=== PATIENT | male | born 1950 | race Caucasian/White ===

== ENCOUNTER 2024-09-27 19:00 | Inpatient (IN) | payer MEDICARE, BC ==
--- NOTE | 2024-09-27 19:11 | ED ---
Altered Mental Status HPI - General Stated Complaint: AMS Time Seen by Provider: 09/27/24 19:07 Source: RN notes reviewed, old records reviewed Mode of arrival: EMS Limitations: altered mental status, physical limitation - History of Present Illness Initial Comments: This is a 74-year-old male to the ER today. He presents today for evaluation regards to altered mental status. Patient is poor historian unable to give us answers as to why he is here in the hospital., Patient remains a poor historian here in the ER found to have low blood sugar MD Complaint: altered mental status, confusion -: unknown Severity: moderate Consistency of Symptoms: getting worse Context: history of similar presentation Associated Symptoms: shortness of breath, weakness Treatments Prior to Arrival: oxygen - Related Data Home Medications Medication Instructions Recorded Confirmed Cyclobenzaprine [Flexeril] 10 mg PO TID 09/27/24 09/27/24 DULoxetine HCL [Cymbalta] 60 mg PO DAILY PRN 09/27/24 09/27/24 Losartan [Cozaar] 50 mg PO DAILY 09/27/24 09/29/24 Montelukast [Singulair] 10 mg PO DAILY 09/27/24 09/27/24 NIFEdipine XL [Procardia XL] 60 mg PO DAILY 09/27/24 09/29/24 Omeprazole [PriLOSEC] 10 mg PO DAILY 09/27/24 09/29/24 Pioglitazone [Actos] 30 mg PO DAILY 09/27/24 09/29/24 Trelegy (Unknown Dose) 1 puff INHALATION RT-DAILY 09/27/24 09/27/24 Zolpidem [Ambien] 10 mg PO HS 09/27/24 09/27/24 allopurinoL [Zyloprim] 300 mg PO DAILY 09/27/24 09/29/24 carvediloL [Coreg] 25 mg PO BID 09/27/24 09/29/24 metFORMIN HCL [Glucophage] 850 mg PO DAILY 09/27/24 09/29/24 Previous Rx's Medication Instructions Recorded Acetaminophen Tab [Tylenol] 650 mg PO Q6HR PRN tab 10/01/24 Apixaban [Eliquis] 5 mg PO BID #60 tab 10/01/24 Aspirin 81 mg PO DAILY 7 Days #7 tab 10/01/24 Atorvastatin [Lipitor] 40 mg PO HS #30 tab 10/01/24 Clopidogrel [Plavix] 75 mg PO DAILY #30 tab 10/01/24 Furosemide [Lasix] 40 mg PO DAILY #30 tab 10/01/24 Gabapentin [Neurontin] 300 mg PO TID cap 10/01/24 Mag Hydrox/Al Hydrox/Simeth 30 ml PO Q4HR PRN ml 10/01/24 [Maalox] Nitroglycerin Sl Tabs [Nitrostat] 0.4 mg SUBLINGUAL Q5M PRN #20 tab 10/01/24 Pantoprazole [Protonix] 40 mg PO AC-BRKFST #30 tab 10/01/24 glipiZIDE [Glucotrol] 5 mg PO BID 30 Days #30 tab 10/01/24 Allergies Allergy/AdvReac Type Severity Reaction Status Date / Time Penicillins Allergy Thrush Verified 09/27/24 20:38 Review of Systems ROS Statement: Those systems with pertinent positive or pertinent negative responses have been documented in the HPI. ROS Other: All systems not noted in ROS Statement are negative. General Exam Limitations: altered mental status General appearance: alert, in no apparent distress, anxious, lethargic Head exam: Present: atraumatic, normocephalic, normal inspection Eye exam: Present: normal appearance, PERRL, EOMI. Absent: scleral icterus, conjunctival injection, periorbital swelling ENT exam: Present: normal exam, mucous membranes moist Neck exam: Present: normal inspection. Absent: tenderness, meningismus, lymphadenopathy Respiratory exam: Present: normal lung sounds bilaterally. Absent: respiratory distress, wheezes, rales, rhonchi, stridor Cardiovascular Exam: Present: normal rhythm, bradycardia, normal heart sounds. Absent: systolic murmur, diastolic murmur, rubs, gallop, clicks GI/Abdominal exam: Present: soft, normal bowel sounds. Absent: distended, tende rness, guarding, rebound, rigid Extremities exam: Present: normal inspection, full ROM, normal capillary refill. Absent: tenderness, pedal edema, joint swelling, calf tenderness Back exam: Present: normal inspection Neurological exam: Present: alert, oriented X3, CN II-XII intact Psychiatric exam: Present: normal affect, normal mood Skin exam: Present: warm, dry, intact, normal color. Absent: rash Course Vital Signs 09/27/24 09/27/24 09/27/24 19:00 20:46 22:27 Temperature 98.1 F 98.3 F Pulse Rate 54 L 58 L 60 Respiratory 18 18 19 Rate Blood Pressure 110/70 125/71 136/79 O2 Sat by Pulse 97 97 97 Oximetry - Reevaluation(s) Reevaluation #1: 09/27/24 19:27 Medical records reviewed Reevaluation #2: 09/27/24 21:22 Patient has recurrent hypoglycemia here in the ER with altered mental status Reevaluation #3: 09/27/24 21:22 Patient informed of results and questions answered Reevaluation #4: Was pt. sent in by a medical professional or institution (, BOO, DIETITIAN RESEARCH, urgent care, hospital, or fpc...) When possible be specific @ -no Did you speak to anyone other than the patient for history (EMS, parent, family, police, friend...)? What history was obtained from this source @ -no Did you review nursing and triage notes (agree or disagree)? Why? @ -agree Are old charts reviewed (outside hosp., previous admission, EMS record, old EKG, old radiological studies, urgent care reports/EKG's, fpc records)? Report findings @ -yes Differential Diagnosis (chest pain, altered mental status, abdominal pain women, abdominal pain men, vaginal bleeding, weakness, fever, dyspnea, syncope, headache, dizziness, GI bleed, back pain, seizure, CVA, palpatations, mental health, musculoskeletal)? @ -prior EKG interpreted by me (3pts min.). @ -yes X-rays interpreted by me (1pt min.). @ -yes negative for acute disease CT interpreted by me (1pt min.). @ -no U/S interpreted by me (1pt. min.). @ -no What testing was considered but not performed or refused? (CT, X-rays, U/S, labs)? Why? @ -none What meds were considered but not given or refused? Why? @ -none Did you discuss the management of the patient with other professionals (professionals i.e. [facility], DIETITIAN RESEARCH, lab, RT, psych nurse, licensed social worker, gas leak inspector helper, teacher, financial administration officer, family independence case manager)? Give summary @ -no Was smoking cessation discussed for >3mins.? @ -no Was critical care preformed (if so, how long)? @ -no Were there social determinants of health that impacted care today? How? (Homelessness, low income, unemployed, alcoholism, drug addiction, transportation, low edu. Level, literacy, decrease access to med. care, assisted, rehab)? @ -none Was there de-escalation of care discussed even if they declined (Discuss DNR or withdrawal of care, Hospice)? DNR status @ -no What co-morbidities impacted this encounter? (DM, HTN, Smoking, COPD, CAD, Cancer, CVA, ARF, Chemo, Hep., AIDS, mental health diagnosis, sleep apnea, morbid obesity)? @ -none Was patient admitted / discharged? Hospital course, mention meds given and route, prescriptions, significant lab abnormalities, going to OR and other pertinent info. @ - 74 male to the ER for evaluation patient presents with weakness unable to get up off the ground after a fall. Patient states he is fallen multiple times lately and he was unable to get up this time called EMS found to have recurrent hypoglycemia here in the ER and will admit for monitoring Admitted Undiagnosed new problem with uncertain prognosis? @ -no Drug Therapy requiring intensive monitoring for toxicity (Heparin, Nitro, Insulin, Cardizem)? @ -no Were any procedures done? @ -no Diagnosis/symptom? @ -Recurrent hypoglycemia multiple falls and weakness Acute, or Chronic, or Acute on Chronic? @ -Acute Uncomplicated (without systemic symptoms) or Complicated (systemic symptoms)? @ -Complicated Side effects of treatment? @ -no Exacerbation, Progression, or Severe Exacerbation? @ -exacerbation Poses a threat to life or bodily function? How? (Chest pain, USA, PA, pneumonia, PE, COPD, DKA, ARF, appy, cholecystitis, CVA, Diverticulitis, Homicidal, Suicidal, threat to staff... and all critical care pts) @ -yes extremes of age Reevaluation #5: Differential Altered Mental Status: Hypoglycemia, DKA, hypercapnia, ETOH, overdose, CO poisoning, trauma, myxedema coma, HTN encephalopathy, infection, encephalitis, psychosis, intercranial hemorrhage, hepatic encephalopathy, meningitis, CVA, this is not meant to be an all-inclusive list - Consultations Consultation #1: Spoke with [facility] who agrees to admit this patient Medical Decision Making - Medical Decision Making 74 male to the ER for evaluation patient presents with weakness unable to get up off the ground after a fall. Patient states he is fallen multiple times lately and he was unable to get up this time called EMS found to have recurrent hypoglycemia here in the ER and will admit for monitoring - Lab Data Result diagrams: 10/01/24 06:00 10/01/24 06:00 Lab Results 09/27/24 09/27/24 09/27/24 Range/Units 19:43 19:43 19:43 WBC 4.4 (3.8-10.6) k/uL RBC 3.99 L (4.30-5.90) m/uL Hgb 13.2 (13.0-17.5) gm/dL Hct 41.8 (39.0-53.0) % MCV 104.6 H (80.0-100.0) fL MCH 33.0 (25.0-35.0) pg MCHC 31.5 (31.0-37.0) g/dL RDW 13.9 (11.5-15.5) % Plt Count 120 L (150-450) k/uL MPV 8.4 Immature Gran % (Auto) % Absolute Nucleated RBC % Neutrophils % 65 % Lymphocytes % 22 % Monocytes % 9 % Eosinophils % 1 % Basophils % 0 % Immature Gran # (0.00-0.04) X 10*3/uL Neutrophils # 2.9 (1.3-7.7) k/uL Lymphocytes # 1.0 (1.0-4.8) k/uL Monocytes # 0.4 (0-1.0) k/uL Eosinophils # 0.1 (0-0.7) k/uL Basophils # 0.0 (0-0.2) k/uL NRBC/100 WBC Diff (0.00-0.01) X 10*3/uL Manual Slide Review Hypochromasia Slight Macrocytosis Slight PT 12.1 (10.0-12.5) sec INR 1.1 (<1.2) APTT 24.3 (22.0-30.0) sec Sodium 139 (137-145) mmol/L Potassium 3.6 (3.5-5.1) mmol/L Chloride 98 (98-107) mmol/L Carbon Dioxide 39 H (22-30) mmol/L Anion Gap 2 mmol/L BUN 17 (9-20) mg/dL Creatinine 0.82 (0.66-1.25) mg/dL Est GFR (CKD-EPI) (>=60) Est GFR (CKD-EPI)AfAm >90 (>60 ml/min/1.73 sqM) Est GFR (CKD-EPI)NonAf 88 (>60 ml/min/1.73 sqM) BUN/Creatinine Ratio (12.00-20.00) Ratio Glucose 48 L* (74-99) mg/dL POC Glucose (mg/dL) (70-110) mg/dL POC Glu Survey Research Manager ID Plasma Lactic Acid Wilson (0.7-2.0) mmol/L Calcium 8.6 (8.4-10.2) mg/dL Phosphorus 3.0 (2.5-4.5) mg/dL Magnesium 1.5 L (1.6-2.3) mg/dL Total Bilirubin 0.5 (0.2-1.3) mg/dL AST 32 (17-59) U/L ALT 24 (4-49) U/L Alkaline Phosphatase 98 (38-126) U/L Ammonia (<30) umol/L Troponin I (0.000-0.034) ng/mL NT-Pro-B Natriuret Pep 864 pg/mL Total Protein 7.1 (6.3-8.2) g/dL Albumin 3.4 L (3.5-5.0) g/dL TSH 5.480 H (0.465-4.680) mIU/L Free T4 (0.78-2.19) ng/dL Free T3 pg/mL (2.30-4.20) pg/mL Urine Color Urine Appearance (Clear) Urine pH (5.0-8.0) Ur Specific [place] (1.001-1.035) Urine Protein (Negative) Urine Glucose (UA) (Negative) Urine Ketones (Negative) Urine Blood (Negative) Urine Nitrite (Negative) Urine Bilirubin (Negative) Urine Urobilinogen (<2.0) mg/dL Ur Leukocyte Esterase (Negative) Urine Opiates Screen (NotDetected) Ur Oxycodone Screen (NotDetected) Urine Methadone Screen (NotDetected) Ur Barbiturates Screen (NotDetected) U Tricyclic Antidepress (NotDetected) Ur Phencyclidine Scrn (NotDetected) Ur Amphetamines Screen (NotDetected) U Methamphetamines Scrn (NotDetected) U Benzodiazepines Scrn (NotDetected) Urine Cocaine Screen (NotDetected) U Marijuana (THC) Screen (NotDetected) Serum Alcohol <10 mg/dL Influenza Type A (PCR) (Not Detectd) Influenza Type B (PCR) (Not Detectd) RSV (PCR) (Not Detectd) SARS-CoV-2 (PCR) (Not Detectd) 09/27/24 09/27/24 09/27/24 Range/Units 19:43 19:43 20:33 WBC (3.8-10.6) k/uL RBC (4.30-5.90) m/uL Hgb (13.0-17.5) gm/dL Hct (39.0-53.0) % MCV (80.0-100.0) fL MCH (25.0-35.0) pg MCHC (31.0-37.0) g/dL RDW (11.5-15.5) % Plt Count (150-450) k/uL MPV Immature Gran % (Auto) % Absolute Nucleated RBC % Neutrophils % % Lymphocytes % % Monocytes % % Eosinophils % % Basophils % % Immature Gran # (0.00-0.04) X 10*3/uL Neutrophils # (1.3-7.7) k/uL Lymphocytes # (1.0-4.8) k/uL Monocytes # (0-1.0) k/uL Eosinophils # (0-0.7) k/uL Basophils # (0-0.2) k/uL NRBC/100 WBC Diff (0.00-0.01) X 10*3/uL Manual Slide Review Hypochromasia Macrocytosis PT (10.0-12.5) sec INR (<1.2) APTT (22.0-30.0) sec Sodium (137-145) mmol/L Potassium (3.5-5.1) mmol/L Chloride (98-107) mmol/L Carbon Dioxide (22-30) mmol/L Anion Gap mmol/L BUN (9-20) mg/dL Creatinine (0.66-1.25) mg/dL Est GFR (CKD-EPI) (>=60) Est GFR (CKD-EPI)AfAm (>60 ml/min/1.73 sqM) Est GFR (CKD-EPI)NonAf (>60 ml/min/1.73 sqM) BUN/Creatinine Ratio (12.00-20.00) Ratio Glucose (74-99) mg/dL POC Glucose (mg/dL) 48 L* (70-110) mg/dL POC Glu Survey Research Manager ID Randall Matilda Plasma Lactic Acid Wilson 1.4 (0.7-2.0) mmol/L Calcium (8.4-10.2) mg/dL Phosphorus (2.5-4.5) mg/dL Magnesium (1.6-2.3) mg/dL Total Bilirubin (0.2-1.3) mg/dL AST (17-59) U/L ALT (4-49) U/L Alkaline Phosphatase (38-126) U/L Ammonia <9 (<30) umol/L Troponin I <0.012 (0.000-0.034) ng/mL NT-Pro-B Natriuret Pep pg/mL Total Protein (6.3-8.2) g/dL Albumin (3.5-5.0) g/dL TSH (0.465-4.680) mIU/L Free T4 (0.78-2.19) ng/dL Free T3 pg/mL (2.30-4.20) pg/mL Urine Color Urine Appearance (Clear) Urine pH (5.0-8.0) Ur Specific [place] (1.001-1.035) Urine Protein (Negative) Urine Glucose (UA) (Negative) Urine Ketones (Negative) Urine Blood (Negative) Urine Nitrite (Negative) Urine Bilirubin (Negative) Urine Urobilinogen (<2.0) mg/dL Ur Leukocyte Esterase (Negative) Urine Opiates Screen (NotDetected) Ur Oxycodone Screen (NotDetected) Urine Methadone Screen (NotDetected) Ur Barbiturates Screen (NotDetected) U Tricyclic Antidepress (NotDetected) Ur Phencyclidine Scrn (NotDetected) Ur Amphetamines Screen (NotDetected) U Methamphetamines Scrn (NotDetected) U Benzodiazepines Scrn (NotDetected) Urine Cocaine Screen (NotDetected) U Marijuana (THC) Screen (NotDetected) Serum Alcohol mg/dL Influenza Type A (PCR) (Not Detectd) Influenza Type B (PCR) (Not Detectd) RSV (PCR) (Not Detectd) SARS-CoV-2 (PCR) (Not Detectd) 09/27/24 09/27/24 09/27/24 Range/Units 20:57 21:14 22:41 WBC (3.8-10.6) k/uL RBC (4.30-5.90) m/uL Hgb (13.0-17.5) gm/dL Hct (39.0-53.0) % MCV (80.0-100.0) fL MCH (25.0-35.0) pg MCHC (31.0-37.0) g/dL RDW (11.5-15.5) % Plt Count (150-450) k/uL MPV Immature Gran % (Auto) % Absolute Nucleated RBC % Neutrophils % % Lymphocytes % % Monocytes % % Eosinophils % % Basophils % % Immature Gran # (0.00-0.04) X 10*3/uL Neutrophils # (1.3-7.7) k/uL Lymphocytes # (1.0-4.8) k/uL Monocytes # (0-1.0) k/uL Eosinophils # (0-0.7) k/uL Basophils # (0-0.2) k/uL NRBC/100 WBC Diff (0.00-0.01) X 10*3/uL Manual Slide Review Hypochromasia Macrocytosis PT (10.0-12.5) sec INR (<1.2) APTT (22.0-30.0) sec Sodium (137-145) mmol/L Potassium (3.5-5.1) mmol/L Chloride (98-107) mmol/L Carbon Dioxide (22-30) mmol/L Anion Gap mmol/L BUN (9-20) mg/dL Creatinine (0.66-1.25) mg/dL Est GFR (CKD-EPI) (>=60) Est GFR (CKD-EPI)AfAm (>60 ml/min/1.73 sqM) Est GFR (CKD-EPI)NonAf (>60 ml/min/1.73 sqM) BUN/Creatinine Ratio (12.00-20.00) Ratio Glucose (74-99) mg/dL POC Glucose (mg/dL) 107 118 H (70-110) mg/dL POC Glu Survey Research Manager ID Prakash Grey Plasma Lactic Acid Wilson (0.7-2.0) mmol/L Calcium (8.4-10.2) mg/dL Phosphorus (2.5-4.5) mg/dL Magnesium (1.6-2.3) mg/dL Total Bilirubin (0.2-1.3) mg/dL AST (17-59) U/L ALT (4-49) U/L Alkaline Phosphatase (38-126) U/L Ammonia (<30) umol/L Troponin I (0.000-0.034) ng/mL NT-Pro-B Natriuret Pep pg/mL Total Protein (6.3-8.2) g/dL Albumin (3.5-5.0) g/dL TSH (0.465-4.680) mIU/L Free T4 (0.78-2.19) ng/dL Free T3 pg/mL (2.30-4.20) pg/mL Urine Color Yellow Urine Appearance Clear (Clear) Urine pH 5.5 (5.0-8.0) Ur Specific [place] 1.019 (1.001-1.035) Urine Protein Trace H (Negative) Urine Glucose (UA) Trace H (Negative) Urine Ketones Negative (Negative) Urine Blood Negative (Negative) Urine Nitrite Negative (Negative) Urine Bilirubin Negative (Negative) Urine Urobilinogen 3.0 (<2.0) mg/dL Ur Leukocyte Esterase Negative (Negative) Urine Opiates Screen Not Detected (NotDetected) Ur Oxycodone Screen Not Detected (NotDetected) Urine Methadone Screen Not Detected (NotDetected) Ur Barbiturates Screen Not Detected (NotDetected) U Tricyclic Antidepress Not Detected (NotDetected) Ur Phencyclidine Scrn Not Detected (NotDetected) Ur Amphetamines Screen Not Detected (NotDetected) U Methamphetamines Scrn Not Detected (NotDetected) U Benzodiazepines Scrn Detected H (NotDetected) Urine Cocaine Screen Not Detected (NotDetected) U Marijuana (THC) Screen Not Detected (NotDetected) Serum Alcohol mg/dL Influenza Type A (PCR) (Not Detectd) Influenza Type B (PCR) (Not Detectd) RSV (PCR) (Not Detectd) SARS-CoV-2 (PCR) (Not Detectd) 09/27/24 09/28/24 09/28/24 Range/Units 22:57 05:30 05:33 WBC 2.9 L (3.8-10.6) k/uL RBC 3.79 L (4.30-5.90) m/uL Hgb 12.6 L (13.0-17.5) gm/dL Hct 39.2 (39.0-53.0) % MCV 103.5 H (80.0-100.0) fL MCH 33.2 (25.0-35.0) pg MCHC 32.1 (31.0-37.0) g/dL RDW 14.2 (11.5-15.5) % Plt Count 97 L (150-450) k/uL MPV 9.0 Immature Gran % (Auto) % Absolute Nucleated RBC % Neutrophils % 50 % Lymphocytes % 37 % Monocytes % 9 % Eosinophils % 2 % Basophils % 0 % Immature Gran # (0.00-0.04) X 10*3/uL Neutrophils # 1.4 (1.3-7.7) k/uL Lymphocytes # 1.1 (1.0-4.8) k/uL Monocytes # 0.3 (0-1.0) k/uL Eosinophils # 0.1 (0-0.7) k/uL Basophils # 0.0 (0-0.2) k/uL NRBC/100 WBC Diff (0.00-0.01) X 10*3/uL Manual Slide Review Performed Hypochromasia Macrocytosis Slight PT (10.0-12.5) sec INR (<1.2) APTT (22.0-30.0) sec Sodium (137-145) mmol/L Potassium (3.5-5.1) mmol/L Chloride (98-107) mmol/L Carbon Dioxide (22-30) mmol/L Anion Gap mmol/L BUN (9-20) mg/dL Creatinine (0.66-1.25) mg/dL Est GFR (CKD-EPI) (>=60) Est GFR (CKD-EPI)AfAm (>60 ml/min/1.73 sqM) Est GFR (CKD-EPI)NonAf (>60 ml/min/1.73 sqM) BUN/Creatinine Ratio (12.00-20.00) Ratio Glucose (74-99) mg/dL POC Glucose (mg/dL) 106 (70-110) mg/dL POC Glu Survey Research Manager ID Davie Whittaker Plasma Lactic Acid Wilson (0.7-2.0) mmol/L Calcium (8.4-10.2) mg/dL Phosphorus (2.5-4.5) mg/dL Magnesium (1.6-2.3) mg/dL Total Bilirubin (0.2-1.3) mg/dL AST (17-59) U/L ALT (4-49) U/L Alkaline Phosphatase (38-126) U/L Ammonia (<30) umol/L Troponin I (0.000-0.034) ng/mL NT-Pro-B Natriuret Pep pg/mL Total Protein (6.3-8.2) g/dL Albumin (3.5-5.0) g/dL TSH (0.465-4.680) mIU/L Free T4 1.21 (0.78-2.19) ng/dL Free T3 pg/mL 2.10 L (2.30-4.20) pg/mL Urine Color Urine Appearance (Clear) Urine pH (5.0-8.0) Ur Specific [place] (1.001-1.035) Urine Protein (Negative) Urine Glucose (UA) (Negative) Urine Ketones (Negative) Urine Blood (Negative) Urine Nitrite (Negative) Urine Bilirubin (Negative) Urine Urobilinogen (<2.0) mg/dL Ur Leukocyte Esterase (Negative) Urine Opiates Screen (NotDetected) Ur Oxycodone Screen (NotDetected) Urine Methadone Screen (NotDetected) Ur Barbiturates Screen (NotDetected) U Tricyclic Antidepress (NotDetected) Ur Phencyclidine Scrn (NotDetected) Ur Amphetamines Screen (NotDetected) U Methamphetamines Scrn (NotDetected) U Benzodiazepines Scrn (NotDetected) Urine Cocaine Screen (NotDetected) U Marijuana (THC) Screen (NotDetected) Serum Alcohol mg/dL Influenza Type A (PCR) (Not Detectd) Influenza Type B (PCR) (Not Detectd) RSV (PCR) (Not Detectd) SARS-CoV-2 (PCR) (Not Detectd) 09/28/24 09/28/24 09/28/24 Range/Units 05:33 06:18 11:28 WBC (3.8-10.6) k/uL RBC (4.30-5.90) m/uL Hgb (13.0-17.5) gm/dL Hct (39.0-53.0) % MCV (80.0-100.0) fL MCH (25.0-35.0) pg MCHC (31.0-37.0) g/dL RDW (11.5-15.5) % Plt Count (150-450) k/uL MPV Immature Gran % (Auto) % Absolute Nucleated RBC % Neutrophils % % Lymphocytes % % Monocytes % % Eosinophils % % Basophils % % Immature Gran # (0.00-0.04) X 10*3/uL Neutrophils # (1.3-7.7) k/uL Lymphocytes # (1.0-4.8) k/uL Monocytes # (0-1.0) k/uL Eosinophils # (0-0.7) k/uL Basophils # (0-0.2) k/uL NRBC/100 WBC Diff (0.00-0.01) X 10*3/uL Manual Slide Review Hypochromasia Macrocytosis PT (10.0-12.5) sec INR (<1.2) APTT (22.0-30.0) sec Sodium 139 (137-145) mmol/L Potassium 3.5 (3.5-5.1) mmol/L Chloride 99 (98-107) mmol/L Carbon Dioxide 38 H (22-30) mmol/L Anion Gap 2 mmol/L BUN 12 (9-20) mg/dL Creatinine 0.74 (0.66-1.25) mg/dL Est GFR (CKD-EPI) (>=60) Est GFR (CKD-EPI)AfAm >90 (>60 ml/min/1.73 sqM) Est GFR (CKD-EPI)NonAf >90 (>60 ml/min/1.73 sqM) BUN/Creatinine Ratio (12.00-20.00) Ratio Glucose 65 L (74-99) mg/dL POC Glucose (mg/dL) 73 100 (70-110) mg/dL POC Glu Survey Research Manager ID Davie Carr Plasma Lactic Acid Wilson (0.7-2.0) mmol/L Calcium 8.2 L (8.4-10.2) mg/dL Phosphorus 2.6 (2.5-4.5) mg/dL Magnesium 1.4 L (1.6-2.3) mg/dL Total Bilirubin 0.5 (0.2-1.3) mg/dL AST 28 (17-59) U/L ALT 22 (4-49) U/L Alkaline Phosphatase 93 (38-126) U/L Ammonia (<30) umol/L Troponin I (0.000-0.034) ng/mL NT-Pro-B Natriuret Pep pg/mL Total Protein 6.4 (6.3-8.2) g/dL Albumin 3.0 L (3.5-5.0) g/dL TSH (0.465-4.680) mIU/L Free T4 (0.78-2.19) ng/dL Free T3 pg/mL (2.30-4.20) pg/mL Urine Color Urine Appearance (Clear) Urine pH (5.0-8.0) Ur Specific [place] (1.001-1.035) Urine Protein (Negative) Urine Glucose (UA) (Negative) Urine Ketones (Negative) Urine Blood (Negative) Urine Nitrite (Negative) Urine Bilirubin (Negative) Urine Urobilinogen (<2.0) mg/dL Ur Leukocyte Esterase (Negative) Urine Opiates Screen (NotDetected) Ur Oxycodone Screen (NotDetected) Urine Methadone Screen (NotDetected) Ur Barbiturates Screen (NotDetected) U Tricyclic Antidepress (NotDetected) Ur Phencyclidine Scrn (NotDetected) Ur Amphetamines Screen (NotDetected) U Methamphetamines Scrn (NotDetected) U Benzodiazepines Scrn (NotDetected) Urine Cocaine Screen (NotDetected) U Marijuana (THC) Screen (NotDetected) Serum Alcohol mg/dL Influenza Type A (PCR) (Not Detectd) Influenza Type B (PCR) (Not Detectd) RSV (PCR) (Not Detectd) SARS-CoV-2 (PCR) (Not Detectd) 01/19/25 01/19/25 01/20/25 Range/Units 16:41 21:04 03:15 WBC 3.99 L (3.8-10.6) k/uL RBC 3.97 L (4.30-5.90) m/uL Hgb 13.0 (13.0-17.5) gm/dL Hct 41.1 (39.0-53.0) % MCV 103.5 H (80.0-100.0) fL MCH 32.7 H (25.0-35.0) pg MCHC 31.6 L (31.0-37.0) g/dL RDW 13.8 (11.5-15.5) % Plt Count 112 L (150-450) k/uL MPV 10.9 Immature Gran % (Auto) 0.30 % Absolute Nucleated RBC 0 % Neutrophils % 41.0 % Lymphocytes % 40.1 % Monocytes % 16.8 % Eosinophils % 1.5 % Basophils % 0.3 % Immature Gran # 0.01 (0.00-0.04) X 10*3/uL Neutrophils # 1.64 L (1.3-7.7) k/uL Lymphocytes # 1.60 (1.0-4.8) k/uL Monocytes # 0.67 (0-1.0) k/uL Eosinophils # 0.06 (0-0.7) k/uL Basophils # 0.01 (0-0.2) k/uL NRBC/100 WBC Diff 0 (0.00-0.01) X 10*3/uL Manual Slide Review Hypochromasia Macrocytosis PT (10.0-12.5) sec INR (<1.2) APTT (22.0-30.0) sec Sodium (137-145) mmol/L Potassium (3.5-5.1) mmol/L Chloride (98-107) mmol/L Carbon Dioxide (22-30) mmol/L Anion Gap mmol/L BUN (9-20) mg/dL Creatinine (0.66-1.25) mg/dL Est GFR (CKD-EPI) (>=60) Est GFR (CKD-EPI)AfAm (>60 ml/min/1.73 sqM) Est GFR (CKD-EPI)NonAf (>60 ml/min/1.73 sqM) BUN/Creatinine Ratio (12.00-20.00) Ratio Glucose (74-99) mg/dL POC Glucose (mg/dL) 159 H 151 H (70-110) mg/dL POC Glu Survey Research Manager ID Dennis Whittaker Plasma Lactic Acid [place] (0.7-2.0) mmol/L Calcium (8.4-10.2) mg/dL Phosphorus (2.5-4.5) mg/dL Magnesium (1.6-2.3) mg/dL Total Bilirubin (0.2-1.3) mg/dL AST (17-59) U/L ALT (4-49) U/L Alkaline Phosphatase (38-126) U/L Ammonia (<30) umol/L Troponin I (0.000-0.034) ng/mL NT-Pro-B Natriuret Pep pg/mL Total Protein (6.3-8.2) g/dL Albumin (3.5-5.0) g/dL TSH (0.465-4.680) mIU/L Free T4 (0.78-2.19) ng/dL Free T3 pg/mL (2.30-4.20) pg/mL Urine Color Urine Appearance (Clear) Urine pH (5.0-8.0) Ur Specific [place] (1.001-1.035) Urine Protein (Negative) Urine Glucose (UA) (Negative) Urine Ketones (Negative) Urine Blood (Negative) Urine Nitrite (Negative) Urine Bilirubin (Negative) Urine Urobilinogen (<2.0) mg/dL Ur Leukocyte Esterase (Negative) Urine Opiates Screen (NotDetected) Ur Oxycodone Screen (NotDetected) Urine Methadone Screen (NotDetected) Ur Barbiturates Screen (NotDetected) U Tricyclic Antidepress (NotDetected) Ur Phencyclidine Scrn (NotDetected) Ur Amphetamines Screen (NotDetected) U Methamphetamines Scrn (NotDetected) U Benzodiazepines Scrn (NotDetected) Urine Cocaine Screen (NotDetected) U Marijuana (THC) Screen (NotDetected) Serum Alcohol mg/dL Influenza Type A (PCR) (Not Detectd) Influenza Type B (PCR) (Not Detectd) RSV (PCR) (Not Detectd) SARS-CoV-2 (PCR) (Not Detectd) 09/29/24 09/29/24 09/29/24 Range/Units 03:15 03:15 06:24 WBC (3.8-10.6) k/uL RBC (4.30-5.90) m/uL Hgb (13.0-17.5) gm/dL Hct (39.0-53.0) % MCV (80.0-100.0) fL MCH (25.0-35.0) pg MCHC (31.0-37.0) g/dL RDW (11.5-15.5) % Plt Count (150-450) k/uL MPV Immature Gran % (Auto) % Absolute Nucleated RBC % Neutrophils % % Lymphocytes % % Monocytes % % Eosinophils % % Basophils % % Immature Gran # (0.00-0.04) X 10*3/uL Neutrophils # (1.3-7.7) k/uL Lymphocytes # (1.0-4.8) k/uL Monocytes # (0-1.0) k/uL Eosinophils # (0-0.7) k/uL Basophils # (0-0.2) k/uL NRBC/100 WBC Diff (0.00-0.01) X 10*3/uL Manual Slide Review Hypochromasia Macrocytosis PT (10.0-12.5) sec INR (<1.2) APTT (22.0-30.0) sec Sodium 140 (137-145) mmol/L Potassium 3.5 (3.5-5.1) mmol/L Chloride 100 (98-107) mmol/L Carbon Dioxide 31.9 H (22-30) mmol/L Anion Gap 8.10 mmol/L BUN 7.1 L (9-20) mg/dL Creatinine 0.7 (0.66-1.25) mg/dL Est GFR (CKD-EPI) 98 (>=60) Est GFR (CKD-EPI)AfAm (>60 ml/min/1.73 sqM) Est GFR (CKD-EPI)NonAf (>60 ml/min/1.73 sqM) BUN/Creatinine Ratio 10.14 L (12.00-20.00) Ratio Glucose 112 H (74-99) mg/dL POC Glucose (mg/dL) 86 (70-110) mg/dL POC Glu Survey Research Manager ID Davie Whittaker Plasma Lactic Acid Wilson (0.7-2.0) mmol/L Calcium 8.8 (8.4-10.2) mg/dL Phosphorus (2.5-4.5) mg/dL Magnesium 1.3 L (1.6-2.3) mg/dL Total Bilirubin (0.2-1.3) mg/dL AST (17-59) U/L ALT (4-49) U/L Alkaline Phosphatase (38-126) U/L Ammonia (<30) umol/L Troponin I (0.000-0.034) ng/mL NT-Pro-B Natriuret Pep 2178 H pg/mL Total Protein (6.3-8.2) g/dL Albumin (3.5-5.0) g/dL TSH (0.465-4.680) mIU/L Free T4 (0.78-2.19) ng/dL Free T3 pg/mL (2.30-4.20) pg/mL Urine Color Urine Appearance (Clear) Urine pH (5.0-8.0) Ur Specific [place] (1.001-1.035) Urine Protein (Negative) Urine Glucose (UA) (Negative) Urine Ketones (Negative) Urine Blood (Negative) Urine Nitrite (Negative) Urine Bilirubin (Negative) Urine Urobilinogen (<2.0) mg/dL Ur Leukocyte Esterase (Negative) Urine Opiates Screen (NotDetected) Ur Oxycodone Screen (NotDetected) Urine Methadone Screen (NotDetected) Ur Barbiturates Screen (NotDetected) U Tricyclic Antidepress (NotDetected) Ur Phencyclidine Scrn (NotDetected) Ur Amphetamines Screen (NotDetected) U Methamphetamines Scrn (NotDetected) U Benzodiazepines Scrn (NotDetected) Urine Cocaine Screen (NotDetected) U Marijuana (THC) Screen (NotDetected) Serum Alcohol mg/dL Influenza Type A (PCR) (Not Detectd) Influenza Type B (PCR) (Not Detectd) RSV (PCR) (Not Detectd) SARS-CoV-2 (PCR) (Not Detectd) 01/20/25 01/20/25 Range/Units 10:57 11:33 WBC (3.8-10.6) k/uL RBC (4.30-5.90) m/uL Hgb (13.0-17.5) gm/dL Hct (39.0-53.0) % MCV (80.0-100.0) fL MCH (25.0-35.0) pg MCHC (31.0-37.0) g/dL RDW (11.5-15.5) % Plt Count (150-450) k/uL MPV Immature Gran % (Auto) % Absolute Nucleated RBC % Neutrophils % % Lymphocytes % % Monocytes % % Eosinophils % % Basophils % % Immature Gran # (0.00-0.04) X 10*3/uL Neutrophils # (1.3-7.7) k/uL Lymphocytes # (1.0-4.8) k/uL Monocytes # (0-1.0) k/uL Eosinophils # (0-0.7) k/uL Basophils # (0-0.2) k/uL NRBC/100 WBC Diff (0.00-0.01) X 10*3/uL Manual Slide Review Hypochromasia Macrocytosis PT (10.0-12.5) sec INR (<1.2) APTT (22.0-30.0) sec Sodium (137-145) mmol/L Potassium (3.5-5.1) mmol/L Chloride (98-107) mmol/L Carbon Dioxide (22-30) mmol/L Anion Gap mmol/L BUN (9-20) mg/dL Creatinine (0.66-1.25) mg/dL Est GFR (CKD-EPI) (>=60) Est GFR (CKD-EPI)AfAm (>60 ml/min/1.73 sqM) Est GFR (CKD-EPI)NonAf (>60 ml/min/1.73 sqM) BUN/Creatinine Ratio (12.00-20.00) Ratio Glucose (74-99) mg/dL POC Glucose (mg/dL) 149 H (70-110) mg/dL POC Glu Survey Research Manager ID Tracey Rivers Plasma Lactic Acid Wilson (0.7-2.0) mmol/L Calcium (8.4-10.2) mg/dL Phosphorus (2.5-4.5) mg/dL Magnesium (1.6-2.3) mg/dL Total Bilirubin (0.2-1.3) mg/dL AST (17-59) U/L ALT (4-49) U/L Alkaline Phosphatase (38-126) U/L Ammonia (<30) umol/L Troponin I (0.000-0.034) ng/mL NT-Pro-B Natriuret Pep pg/mL Total Protein (6.3-8.2) g/dL Albumin (3.5-5.0) g/dL TSH (0.465-4.680) mIU/L Free T4 (0.78-2.19) ng/dL Free T3 pg/mL (2.30-4.20) pg/mL Urine Color Urine Appearance (Clear) Urine pH (5.0-8.0) Ur Specific [place] (1.001-1.035) Urine Protein (Negative) Urine Glucose (UA) (Negative) Urine Ketones (Negative) Urine Blood (Negative) Urine Nitrite (Negative) Urine Bilirubin (Negative) Urine Urobilinogen (<2.0) mg/dL Ur Leukocyte Esterase (Negative) Urine Opiates Screen (NotDetected) Ur Oxycodone Screen (NotDetected) Urine Methadone Screen (NotDetected) Ur Barbiturates Screen (NotDetected) U Tricyclic Antidepress (NotDetected) Ur Phencyclidine Scrn (NotDetected) Ur Amphetamines Screen (NotDetected) U Methamphetamines Scrn (NotDetected) U Benzodiazepines Scrn (NotDetected) Urine Cocaine Screen (NotDetected) U Marijuana (THC) Screen (NotDetected) Serum Alcohol mg/dL Influenza Type A (PCR) Not Detected (Not Detectd) Influenza Type B (PCR) Not Detected (Not Detectd) RSV (PCR) Not Detected (Not Detectd) SARS-CoV-2 (PCR) Not Detected (Not Detectd) - EKG Data -: EKG Interpreted by Me (EKG is sinus bradycardia 50 IN 186 QRS 103 QTc 436) - Radiology Data Radiology results: report reviewed (X-ray chest and pelvis negative for acute disease), image reviewed Critical Care Time Critical Care Time: Yes Total Critical Care Time: 31 Disposition Clinical Impression: Fall, Weakness, Debility, Hypoglycemia Narrative: Recurrent Hypoglycemia Disposition: ADMITTED IP TO THIS HOSP Condition: Serious Is patient prescribed a controlled substance at d/c from ED?: No Time of Disposition: 21:20
[2024-09-27] MEDS: SODIUM CHLORIDE 0.9% 1,000 ML IV STA (19:50)
[2024-09-27 20:24] LABS: Lactic Acid, Venous 1.4 mmol/L (0.7-2.0)
[2024-09-27 20:25] LABS: Basophils % (A) 0 %; Eosinophils # (A) 0.1 k/uL (0-0.7); Eosinophils % (A) 1 %; HCT 41.8 % (39.0-53.0); HGB 13.2 gm/dL (13.0-17.5); Hypochromasia Slight; Lymphocytes % (A) 22 %; MCHC 31.5 g/dL (31.0-37.0); MCV 104.6 fL (80.0-100.0); Macrocytosis Slight; Mean Platelet Volume 8.4; Monocytes # (A) 0.4 k/uL (0-1.0); Monocytes % (A) 9 %; Neutrophils # (A) 2.9 k/uL (1.3-7.7); Neutrophils % (A) 65 %; Platelet Count 120 k/uL (150-450); RBC 3.99 m/uL (4.30-5.90); RDW 13.9 % (11.5-15.5); WBC 4.4 k/uL (3.8-10.6)
[2024-09-27 20:27] LABS: ALT 24 U/L (4-49); AST 32 U/L (17-59); African American GFR (CKD) >90 (>60 ml/min/1.73 sqM); Albumin 3.4 g/dL (3.5-5.0); Alcohol <10 mg/dL; Alkaline Phosphatase 98 U/L (38-126); Anion Gap 2 mmol/L; Blood Urea Nitrogen 17 mg/dL (9-20); Calcium 8.6 mg/dL (8.4-10.2); Carbon Dioxide 39 mmol/L (22-30); Chloride 98 mmol/L (98-107); Magnesium 1.5 mg/dL (1.6-2.3); Non-African American GFR(CKD) 88 (>60 ml/min/1.73 sqM); Potassium 3.6 mmol/L (3.5-5.1); Sodium 139 mmol/L (137-145); Total Bilirubin 0.5 mg/dL (0.2-1.3); Total Protein 7.1 g/dL (6.3-8.2)
[2024-09-27 20:31] LABS: Glucose 48 mg/dL (74-99)
[2024-09-27 20:35] LABS: NT-Pro-B-Type Natriuretic Pept 864 pg/mL
[2024-09-27 20:35] LABS: Glucose,Whole Blood 48 mg/dL (70-110)
[2024-09-27] MEDS: DEXTROSE 50% SYRINGE 50 ML IVP STA (20:44)
[2024-09-27 20:59] LABS: Glucose,Whole Blood 107 mg/dL (70-110)
[2024-09-27 21:03] LABS: INR 1.1 (<1.2); Partial Thromboplastin Time 24.3 sec (22.0-30.0); Prothrombin Time 12.1 sec (10.0-12.5)
[2024-09-27 21:16] LABS: Glucose,Whole Blood 118 mg/dL (70-110)
[2024-09-27] MEDS ORDERED: NALOXONE 0.4 MG/ML 1 ML VIAL IV PRN (21:19)
--- NOTE | 2024-09-27 21:22 | XR ---
EXAMINATION TYPE: XR chest 1V DATE OF EXAM: 09/27/2024 9:17 PM COMPARISON: None CLINICAL INDICATION: Male, 74 years old with history of fall; [facility] TECHNIQUE: XR chest 1V Frontal view of the chest. FINDINGS: Lungs/Pleura: No evidence of focal consolidation or pneumothorax. Blunting of the costophrenic angles is present. Pulmonary vascularity: Pulmonary vascular congestion. Heart/mediastinum: Cardiomediastinal silhouette is enlarged. Musculoskeletal: No acute osseous pathology. Other findings: None Lines/Tubes: IMPRESSION: Cardiomegaly, pulmonary vascular congestion and bilateral pleural effusions. Correlate with BNP for c ongestive heart failure. [facility], , 09/27/2024 9:19 PM
--- NOTE | 2024-09-27 21:23 | XR ---
EXAMINATION TYPE: XR pelvis AP view DATE OF EXAM: 09/27/2024 9:17 PM COMPARISON: None CLINICAL INDICATION: Male, 74 years old with history of fall; pain [facility] TECHNIQUE: XR pelvis AP view, examined in a single projection. FINDINGS: There is no evidence of fracture or dislocation. There is no soft tissue abnormality. No a bnormal calcifications are present. The spine appears intact. The hips appear intact. No significant degeneration. IMPRESSION: No acute osseous pathology. [facility], , 09/27/2024 9:21 PM
[2024-09-27 22:58] LABS: Glucose,Whole Blood 106 mg/dL (70-110)
[2024-09-27 23:12] LABS: Appearance,Urine Clear (Clear); Bilirubin,Urine Negative (Negative); Blood,Urine Negative (Negative); Color,Urine Yellow; Glucose,Urine (UA) Trace (Negative); Ketones,Urine Negative (Negative); Leukocyte Esterase,Urine Negative (Negative); Nitrite,Urine Negative (Negative); PH, Urine 5.5 (5.0-8.0); Protein,Urine Trace (Negative); Specific Gravity,Urine 1.019 (1.001-1.035)
[2024-09-27 23:29] LABS: Amphetamine Screen,Urine Not Detected (NotDetected); Benzodiazepines Screen,Urine Detected (NotDetected); Cocaine Screen,Urine Not Detected (NotDetected); Methadone Screen, Urine Not Detected (NotDetected); Opiate Screen,Urine Not Detected (NotDetected); Phencyclidine Screen,Urine Not Detected (NotDetected); Tricyclic Antidepressant,Urine Not Detected (NotDetected); Urn Cannabinoid Scrn Not Detected (NotDetected)
[2024-09-27 23:30] LABS: Barbiturate Screen,Urine Not Detected (NotDetected); Oxycodone Screen, Urine Not Detected (NotDetected)
[2024-09-28 06:20] LABS: Glucose,Whole Blood 73 mg/dL (70-110)
[2024-09-28 06:28] LABS: ALT 22 U/L (4-49); AST 28 U/L (17-59); African American GFR (CKD) >90 (>60 ml/min/1.73 sqM); Alkaline Phosphatase 93 U/L (38-126); Anion Gap 2 mmol/L; Blood Urea Nitrogen 12 mg/dL (9-20); Calcium 8.2 mg/dL (8.4-10.2); Carbon Dioxide 38 mmol/L (22-30); Chloride 99 mmol/L (98-107); Glucose 65 mg/dL (74-99); Magnesium 1.4 mg/dL (1.6-2.3); Non-African American GFR(CKD) >90 (>60 ml/min/1.73 sqM); Phosphorus 2.6 mg/dL (2.5-4.5); Potassium 3.5 mmol/L (3.5-5.1); Sodium 139 mmol/L (137-145); Total Bilirubin 0.5 mg/dL (0.2-1.3); Total Protein 6.4 g/dL (6.3-8.2)
[2024-09-28 07:03] LABS: Basophils % (A) 0 %; Eosinophils # (A) 0.1 k/uL (0-0.7); Eosinophils % (A) 2 %; HCT 39.2 % (39.0-53.0); HGB 12.6 gm/dL (13.0-17.5); Lymphocytes # (A) 1.1 k/uL (1.0-4.8); Lymphocytes % (A) 37 %; MCH 33.2 pg (25.0-35.0); MCHC 32.1 g/dL (31.0-37.0); MCV 103.5 fL (80.0-100.0); Macrocytosis Slight; Monocytes # (A) 0.3 k/uL (0-1.0); Monocytes % (A) 9 %; Neutrophils # (A) 1.4 k/uL (1.3-7.7); Neutrophils % (A) 50 %; RBC 3.79 m/uL (4.30-5.90); RDW 14.2 % (11.5-15.5); WBC 2.9 k/uL (3.8-10.6)
[2024-09-28 07:44] LABS: Platelet Count 97 k/uL (150-450)
[2024-09-28 11:29] LABS: Glucose,Whole Blood 100 mg/dL (70-110)
[2024-09-28 16:44] LABS: Glucose,Whole Blood 159 mg/dL (70-110)
[2024-09-28 21:06] LABS: Glucose,Whole Blood 151 mg/dL (70-110)
[2024-09-28] MEDS: ZOLPIDEM 5 MG TAB PO PRN (23:21)
[2024-09-29] MEDS ORDERED: DULoxetine HCL 60 MG CAPSULE.DR PO PRN (01:59)
[2024-09-29] MEDS ORDERED: CYCLOBENZAPRINE 10 MG TAB PO PRN (01:59)
[2024-09-29] MEDS ORDERED: DEXTROSE 50% SYRINGE 50 ML IVP PRN ×2 (02:02)
[2024-09-29] MEDS ORDERED: IPRATROPIUM-ALBUTEROL 3 ML NEB INHALATION PRN (02:06)
[2024-09-29] MEDS ORDERED: ALBUTEROL NEBULIZED 2.5 MG/3 ML INHALATION PRN (02:06)
[2024-09-29 03:32] LABS: T4, Free (Free Thyroxine) 1.21 ng/dL (0.78-2.19)
--- NOTE | 2024-09-29 03:54 | P.HPIM ---
History of Present Illness H&P Date: 09/28/24 This is a pleasant 74-year-old male who presented to the emergency department with recurrent falls and generalized weakness with concerns of recurrent hypoglycemia. Patient follows with Dr. Brooks out of [facility] as he previously lived down there and unsure but was recently hospitalized at [facility] and reported the same symptoms. Med reconciliation ongoing as they are not accurate and were recently changed from previous hospitalization. Patient does take glipizide along with metformin and will hold for now and start with sliding scale. Patient's chest x-ray in the ER showed bilateral pleural effusions with pulmonary vascular congestion. Patient denies history of heart failure although is a poor historian. Medical records state he has history of atrial fibrillation, COPD, diabetes mellitus, GERD, hyperlipidemia, hypertension, gout with neuropathy and chronic pain and former smoker. Patient currently on 3 L via nasal cannula and reports does not wear oxygen outpatient although occasionally uses inhalers. Again patient is poor historian. Will have PT/OT therapy evaluate the patient. REVIEW OF SYSTEMS: CONSTITUTIONAL: No fever, no malaise, patient reports fatigue. HEENT: No recent visual problems or hearing problems. Denied any sore throat. CARDIOVASCULAR: No chest pain, orthopnea, PND, no palpitations, no syncope. PULMONARY: Reports of some shortness of breath, no cough, no hemoptysis. GASTROINTESTINAL: No diarrhea, no nausea, no vomiting, no abdominal pain. NEUROLOGICAL: No headaches, no weakness, no numbness. HEMATOLOGICAL: Denies any bleeding or petechiae. GENITOURINARY: Denies any burning micturition, frequency, or urgency. MUSCULOSKELETAL/RHEUMATOLOGICAL: Denies any joint pain, swelling, or any muscle pain. Reports of chronic back pain and generalized weakness. ENDOCRINE: Denies any polyuria or polydipsia. The rest of the 14-point review of systems is negative. PHYSICAL EXAMINATION: GENERAL: The patient is alert and oriented x3, not in any acute distress. Well developed, elderly appearing, morbidly obese. HEENT: Pupils are round and equally reacting to light. EOMI. No scleral icterus. No conjunctival pallor. Normocephalic, atraumatic. No pharyngeal erythema. No thyromegaly. CARDIOVASCULAR: S1 and S2 muffled PULMONARY: Diminished breath sounds bilaterally with a few scattered crackles noted at the bases. ABDOMEN: Soft, obese, nontender, nondistended, normoactive bowel sounds. No palpable organomegaly. MUSCULOSKELETAL: No joint swelling or deformity. EXTREMITIES: No cyanosis, clubbing, or pedal edema. NEUROLOGICAL: Gross neurological examination did not reveal any focal deficits. Diffusely weak SKIN: No rashes. Assessment: Falls, mechanical with recurrent falls and generalized weakness Diabetes mellitus, type II uncontrolled with hypoglycemia Atrial fibrillation history Morbid obesity with a BMI of 40.9 Hyperlipidemia history Hypertension history Chronic pain history GERD History of COPD, not in exacerbation Acute hypoxic respiratory failure, possibly secondary to pulmonary vascular congestion GI prophylaxis DVT prophylaxis Full code Plan: Patient was admitted with recurrent hypoglycemia although when asking patient, he is a poor historian and reports unsure why he was hospitalized Patient was recently hospitalized at [facility] and will attempt to obtain records Chest x-ray showing pulmonary vascular congestion and will order BNP, initiate Lasix twice daily and will consult cardiology and appreciate input and recommendations Possibly obtain a 2D echo if 1 was not done previously recently at [facility] last week Monitor blood sugars before meals and at bedtime and continue with sliding scale, hold oral diabetic agents for now Home medications reviewed and resumed as appropriate and will discuss further with girlfriend regarding accurate medication reconciliation. Nursing staff reports multiple medications were adjusted while recently at hospital. Recommend PT/OT therapy evaluation Will obtain Cepheid testing as girlfriend at home is reported to have influenza and patient was recently hospitalized Due to multiple complex medical issues, overall prognosis is guarded The impression and plan of care has been dictated by Martha Fitzpatrick, Nurse Practitioner as directed. Dr. Kvng MD I have performed a history and examination and MDM of this patient, discussed t he same with the dictator, and agree with the dictator's assessment and plan as written ,documented as a scribe. Based on total visit time, I have performed more than 50% of the visit. Past Medical History Past Medical History: Atrial Fibrillation, COPD, Diabetes Mellitus, GERD/Reflux, Hyperlipidemia, Hypertension, Pneumonia Additional Past Medical History / Comment(s): gout, neuropathy, chronic pain, Bush's Palsy History of Any Multi-Drug Resistant Organisms: None Reported Past Surgical History: Hernia Repair Additional Past Surgical History / Comment(s): cervical fusion, umbilical hernia repair. Past Anesthesia/Blood Transfusion Reactions: No Reported Reaction Past Psychological History: No Psychological Hx Reported Smoking Status: Former smoker Past Alcohol Use History: None Reported Past Drug Use History: None Reported Medications and Allergies Home Medications Medication Instructions Recorded Confirmed Type Atorvastatin [Lipitor] 10 mg PO DIRECTED 09/27/24 09/27/24 History Cyclobenzaprine [Flexeril] 10 mg PO TID 09/27/24 09/27/24 History DULoxetine HCL [Cymbalta] 60 mg PO DAILY PRN 09/27/24 09/27/24 History Gabapentin 1,800 mg PO BID 09/27/24 09/27/24 History Losartan [Cozaar] 50 mg PO DIRECTED 09/27/24 09/27/24 History Montelukast [Singulair] 10 mg PO DAILY 09/27/24 09/27/24 History NIFEdipine XL [Procardia XL] 60 mg PO DIRECTED 09/27/24 09/27/24 History Omeprazole [PriLOSEC] 10 mg PO DIRECTED 09/27/24 09/27/24 History Pioglitazone [Actos] 30 mg PO DIRECTED 09/27/24 09/27/24 History Trelegy (Unknown Dose) 1 puff INHALATION RT-DAILY 09/27/24 09/27/24 History Zolpidem [Ambien] 10 mg PO HS 09/27/24 09/27/24 History allopurinoL [Zyloprim] 300 mg PO DIRECTED 09/27/24 09/27/24 History carvediloL [Coreg] 25 mg PO DIRECTED 09/27/24 09/27/24 History glipiZIDE [Glucotrol] 10 mg PO DIRECTED 09/27/24 09/27/24 History metFORMIN HCL [Glucophage] 850 mg PO DIRECTED 09/27/24 09/27/24 History Allergies Allergy/AdvReac Type Severity Reaction Status Date / Time Penicillins Allergy Thrush Verified 09/27/24 20:38 Physical Exam Vitals: Vital Signs Temp Pulse Pulse Resp BP BP Pulse Ox 09/28/24 06:59 98.4 F 61 14 115/61 97 09/28/24 02:32 98.2 F 61 17 109/65 98 09/27/24 22:59 98.1 F 58 L 17 147/85 96 09/27/24 22:27 98.3 F 60 19 136/79 97 09/27/24 20:46 58 L 18 125/71 97 09/27/24 19:00 98.1 F 54 L 18 110/70 97 Intake and Output 09/27/24 09/28/24 09/28/24 22:59 06:59 14:59 Output Total 200 Balance -200 Output: Urine 200 Other: # Voids 2 # Bowel Movements 1 Weight 125.645 kg 125.645 kg Results CBC & Chem 7: 09/28/24 05:33 09/28/24 05:33 Labs: Abnormal Lab Results - Last 24 Hours (Table) 09/27/24 09/27/24 09/27/24 Range/Units 19:43 19:43 20:33 WBC (3.8-10.6) k/uL RBC 3.99 L (4.30-5.90) m/uL Hgb (13.0-17.5) gm/dL MCV 104.6 H (80.0-100.0) fL Plt Count 120 L (150-450) k/uL Carbon Dioxide 39 H (22-30) mmol/L Glucose 48 L* (74-99) mg/dL POC Glucose (mg/dL) 48 L* (70-110) mg/dL Calcium (8.4-10.2) mg/dL Magnesium 1.5 L (1.6-2.3) mg/dL Albumin 3.4 L (3.5-5.0) g/dL TSH 5.480 H (0.465-4.680) mIU/L Urine Protein (Negative) Urine Glucose (UA) (Negative) U Benzodiazepines Scrn (NotDetected) 09/27/24 09/27/24 09/28/24 Range/Units 21:14 22:41 05:33 WBC 2.9 L (3.8-10.6) k/uL RBC 3.79 L (4.30-5.90) m/uL Hgb 12.6 L (13.0-17.5) gm/dL MCV 103.5 H (80.0-100.0) fL Plt Count 97 L (150-450) k/uL Carbon Dioxide (22-30) mmol/L Glucose (74-99) mg/dL POC Glucose (mg/dL) 118 H (70-110) mg/dL Calcium (8.4-10.2) mg/dL Magnesium (1.6-2.3) mg/dL Albumin (3.5-5.0) g/dL TSH (0.465-4.680) mIU/L Urine Protein Trace H (Negative) Urine Glucose (UA) Trace H (Negative) U Benzodiazepines Scrn Detected H (NotDetected) 09/28/24 Range/Units 05:33 WBC (3.8-10.6) k/uL RBC (4.30-5.90) m/uL Hgb (13.0-17.5) gm/dL MCV (80.0-100.0) fL Plt Count (150-450) k/uL Carbon Dioxide 38 H (22-30) mmol/L Glucose 65 L (74-99) mg/dL POC Glucose (mg/dL) (70-110) mg/dL Calcium 8.2 L (8.4-10.2) mg/dL Magnesium 1.4 L (1.6-2.3) mg/dL Albumin 3.0 L (3.5-5.0) g/dL TSH (0.465-4.680) mIU/L Urine Protein (Negative) Urine Glucose (UA) (Negative) U Benzodiazepines Scrn (NotDetected) Thrombosis Risk Factor Assmnt - Choose All That Apply Any of the Below Risk Factors Present?: Yes Each Factor Represents 1 point: Abnormal pulmonary function (COPD), Obesity (BMI >25), Swollen legs (current) Other Risk Factors: Yes Each Risk Factor Represents 2 Points: Age 61-74 years Other congenital or acquired thrombophilia - If yes, enter type in comment: No Thrombosis Risk Factor Assessment Total Risk Factor Score: 5 Thrombosis Risk Factor Assessment Level: High Risk
[2024-09-29 06:25] LABS: Glucose,Whole Blood 86 mg/dL (70-110)
[2024-09-29] MEDS: INSULIN ASPART (NovoLOG) 100 UNIT/ML VIAL SQ SCH (06:27)
[2024-09-29] MEDS: PANTOPRAZOLE 40 MG TABLET PO SCH (06:28)
[2024-09-29 08:36] LABS: Basophils # (A) 0.01 X 10*3/uL (0.00-0.10); Basophils % (A) 0.3 %; Eosinophils # (A) 0.06 X 10*3/uL (0.04-0.35); Eosinophils % (A) 1.5 %; HCT 41.1 % (39.6-50.0); Lymphocytes % (A) 40.1 %; MCH 32.7 pg (27.0-32.0); MCHC 31.6 g/dL (32.0-37.0); MCV 103.5 FL (80.0-97.0); Mean Platelet Volume 10.9 FL (9.5-12.2); Monocytes # (A) 0.67 X 10*3/uL (0.20-1.00); Monocytes % (A) 16.8 %; NRBC Per 100 WBC 0 X 10*3/uL (0.00-0.01); Neutrophils # (A) 1.64 X 10*3/uL (1.80-7.70); Platelet Count 112 X 10*3/uL (140-440); RBC 3.97 X 10*6/uL (4.40-5.60); RDW 13.8 % (11.5-14.5); WBC 3.99 X 10*3/uL (4.50-10.00)
[2024-09-29] MEDS: TIOTROPIUM 2.5 MCG INHALER INHALATION SCH (08:41)
[2024-09-29] MEDS: SYMBICORT 160-4.5 MCG INHALER INHALATION SCH (08:41)
[2024-09-29] MEDS: MONTELUKAST 10 MG TAB PO SCH (08:54)
[2024-09-29] MEDS: FUROSEMIDE 10 MG/ML 4 ML VIAL IV SCH (08:54)
[2024-09-29] MEDS: allopurinoL 300 MG TAB PO SCH (08:55)
[2024-09-29] MEDS: LOSARTAN 50 MG TAB PO SCH (08:55)
[2024-09-29] MEDS: ACETAMINOPHEN TAB 325 MG TAB PO PRN (08:55)
[2024-09-29] MEDS: GABAPENTIN 300 MG CAP PO SCH (08:55)
[2024-09-29] MEDS ORDERED: carvediloL 12.5 MG TAB PO SCH ×2 (09:00)
[2024-09-29 09:11] LABS: BUN/Creat Ratio 10.14 Ratio (12.00-20.00); Blood Urea Nitrogen 7.1 mg/dL (9.0-27.0); Calcium 8.8 mg/dL (8.7-10.3); Carbon Dioxide 31.9 mmol/L (21.6-31.8); Chloride 100 mmol/L (96-109); Glucose 112 mg/dL (70-110); Magnesium 1.3 mg/dL (1.5-2.4); Potassium 3.5 mmol/L (3.5-5.5); Sodium 140 mmol/L (135-145)
[2024-09-29] MEDS: ONDANSETRON 4 MG/2 ML VIAL IVP PRN (09:13)
[2024-09-29] MEDS ORDERED: Magnesium Replacement Protocol 1 EACH MISC MISCELLANE PRN (09:54)
[2024-09-29 11:35] LABS: Glucose,Whole Blood 149 mg/dL (70-110)
[2024-09-29 11:41] LABS: Influenza A Not Detected (Not Detectd); Influenza B Not Detected (Not Detectd); RSV Not Detected (Not Detectd)
[2024-09-29] MEDS: MAGNESIUM SULFATE-D5W PMX 1 GM in DEXTROSE/WATER 1 100ML.BAG IVPB SCH (13:23)
--- NOTE | 2024-09-29 14:00 | P.CRDCN ---
History of Present Illness Consult date: 09/29/24 Reason for Consult (text): CHF, pleural effusion, shortness of breath History of present illness: This is a 74-year-old male patient with past medical history of diabetes mellitus type 2, hypertension, hyperlipidemia, COPD, GERD. We have been asked to evaluate the patient for CHF, pleural effusion, shortness of breath. Patient presented to the emergency center due to altered mental status and confusion, generalized weakness and shortness of breath. Patient apparently had a fall and has had multiple falls was unable to get up from the floor. Patient is also had difficulty with hypoglycemia and found to have blood sugar of only 48. Patient states that he has had ongoing problems with weakness and has no strength in his arms or legs. He denies history of heart failure. He does not have home oxygen. He was recently at [facility] about a week ago because his medications got mixed up. He normally lives with his girlfriend. Regarding atrial fibrillation. He thinks that he may have been told that he had atrial fibrillation but he is not on blood thinners. He denies smoking, alcohol use, marijuana or drug use. He states he may have had a stress test done 5 to 10 years ago. No previous catheterization done. He thinks he may have had a history of a stroke. Blood pressure 136/64, heart rate 62, 695% on 2 L nasal can nula. Patient is scheduled to start IV Lasix 40 mg every 12 hours this morning. -EKG: Sinus rhythm 50 bpm, T wave abnormality. -Chest x-ray: Cardiomegaly, pulmonary vascular congestion and bilateral pleural effusions. -X-ray pelvis: No acute osseous pathology. -Laboratory studies: WBC 2.9, hemoglobin 12.6, platelet count 97. Sodium 139, potassium 3.5, BUN 12 and creatinine 0.74. Initial glucose 48. Troponin negative x 1. proBNP 864. TSH 5.48 and normal free T4 at 1.21. Urine drug screen positive for benzodiazepines. Serum alcohol less than 10. -Home cardiac medications: Atorvastatin 10 mg daily, Coreg 25 mg twice daily, losartan 50 mg daily, Procardia XL 60 mg daily. Review Of Systems: At the time of my exam: CONSTITUTIONAL: Denies fever or chills. Reports generalized weakness HEENT: Denies blurred vision, vision changes, or eye pain. Denies hemoptysis CARDIOVASCULAR: Denies chest pain. Denies orthopnea. Denies PND. Denies palpitations RESPIRATORY: Denies shortness of breath. GASTROINTESTINAL: Denies abdominal pain. Denies nausea or vomiting. HEMATOLOGIC: Denies bleeding disorders. GENITOURINARY: Denies any blood in urine. SKIN: Denies puritis. Denies rash. Physical examination: Gen: This is a 74-year-old morbidly obese male in no acute distress VS: reviewed HEENT: Head is atraumatic, normocephalic. Pupils equal, round. Sclerae is anicteric. NECK: Supple. No JVD. LUNGS: Diminished breath sounds. No intercostal retractions. HEART: Regular rate and rhythm. ABDOMEN: Soft No tenderness. EXTREMITIES: No pedal edema. No calf tenderness. NEUROLOGICAL: Patient is awake, alert and oriented x3. Assessment: Acute on chronic heart failure, unknown EF Abnormal EKG with dyspnea and fatigue, rule out CAD Multiple falls Metabolic encephalopathy Hypoglycemia Pancytopenia Diabetes mellitus type 2 Hypertension Hyperlipidemia COPD GERD Morbid obesity with BMI of 40 Plan: Resume patient's home cardiac medications Continue IV Lasix 40 mg every 12 hours Monitor HELENA, daily weights, electrolytes and renal function Obtain medical records from [facility] where he was hospitalized 1 week ago Obtain 2-D echocardiogram and Doppler study to assess cardiac structure and function If echocardiogram is normal, will consider doing stress test tomorrow N.p.o. after midnight If echocardiogram reveals reduced EF, will consider cardiac catheterization. Regarding atrial fibrillation. No anticoagulation until this can be confirmed Further recommendations to follow based upon clinical course Thank you kindly for this consultation. Nurse practitioner note has been reviewed, I agree with documented findings and plan of care. Patient was seen and examined. Past Medical History Past Medical History: Atrial Fibrillation, COPD, Diabetes Mellitus, GERD/Reflux, Hyperlipidemia, Hypertension, Pneumonia Additional Past Medical History / Comment(s): gout, neuropathy, chronic pain, Bush's Palsy History of Any Multi-Drug Resistant Organisms: None Reported Past Surgical History: Hernia Repair Additional Past Surgical History / Comment(s): cervical fusion, umbilical hernia repair. Past Anesthesia/Blood Transfusion Reactions: No Reported Reaction Past Psychological History: No Psychological Hx Reported Smoking Status: Former smoker Past Alcohol Use History: None Reported Past Drug Use History: None Reported Medications and Allergies Home Medications Medication Instructions Recorded Confirmed Type Atorvastatin [Lipitor] 10 mg PO DAILY 09/27/24 09/29/24 History Cyclobenzaprine [Flexeril] 10 mg PO TID 09/27/24 09/27/24 History DULoxetine HCL [Cymbalta] 60 mg PO DAILY PRN 09/27/24 09/27/24 History Gabapentin 1,800 mg PO BID 09/27/24 09/27/24 History Losartan [Cozaar] 50 mg PO DAILY 09/27/24 09/29/24 History Montelukast [Singulair] 10 mg PO DAILY 09/27/24 09/27/24 History NIFEdipine XL [Procardia XL] 60 mg PO DAILY 09/27/24 09/29/24 History Omeprazole [PriLOSEC] 10 mg PO DAILY 09/27/24 09/29/24 History Pioglitazone [Actos] 30 mg PO DAILY 09/27/24 09/29/24 History Trelegy (Unknown Dose) 1 puff INHALATION RT-DAILY 09/27/24 09/27/24 History Zolpidem [Ambien] 10 mg PO HS 09/27/24 09/27/24 History allopurinoL [Zyloprim] 300 mg PO DAILY 09/27/24 09/29/24 History carvediloL [Coreg] 25 mg PO BID 09/27/24 09/29/24 History glipiZIDE [Glucotrol] 10 mg PO BID 09/27/24 09/29/24 History metFORMIN HCL [Glucophage] 850 mg PO DAILY 09/27/24 09/29/24 History Allergies Allergy/AdvReac Type Severity Reaction Status Date / Time Penicillins Allergy Thrush Verified 09/27/24 20:38 Physical Exam Vitals: Vital Signs Temp Pulse Resp BP Pulse Ox 09/29/24 02:00 98.7 F 62 17 136/64 95 09/28/24 20:00 98.8 F 72 17 131/69 99 09/28/24 14:00 98.0 F 60 17 145/76 96 Intake and Output 09/28/24 09/29/24 09/29/24 22:59 06:59 14:59 Output Total 300 Balance -300 Output: Urine 300 Other: Voiding Method Toilet # Voids 1 Results 09/29/24 03:15 09/29/24 03:15 CBC 09/28/24 Range/Units 05:33 Plt Count 97 L (150-450) k/uL Current Medications Generic Name Dose Route Start Last Admin Trade Name Freq PRN Reason Stop Dose Admin Acetaminophen 650 mg 09/29/24 02:05 Acetaminophen Tab 325 Mg Tab PO Q6HR PRN Fever and/ or Pain Albuterol Sulfate 2.5 mg 09/29/24 02:06 Albuterol Nebulized 2.5 Mg/3 Ml INHALATION RT-QID PRN Shortness Of Breath Or Wheezing Albuterol/Ipratropium 3 ml 09/29/24 02:06 Ipratropium-Albuterol 3 Ml Neb INHALATION RT-TID PRN Shortness Of Breath Or Wheezing Allopurinol 300 mg 09/29/24 09:00 Allopurinol 300 Mg Tab PO DAILY [facility] Atorvastatin Calcium 10 mg 09/29/24 21:00 Atorvastatin 10 Mg Tab PO HS [facility] Budesonide/Formoterol Fumarate 2 puff 09/29/24 08:00 Symbicort 160-4.5 Mcg Inhaler INHALATION RT-BID [facility] Carvedilol 25 mg 09/29/24 09:00 Carvedilol 12.5 Mg Tab PO DAILY [facility] Cyclobenzaprine HCl 10 mg 09/29/24 01:59 Cyclobenzaprine 10 Mg Tab PO TID PRN Spasms Dextrose/Water 25 ml 09/29/24 02:02 Dextrose 50% Syringe 50 Ml IVP PER PROTOCOL PRN Hypoglycemia Protocol Dextrose/Water 50 ml 09/29/24 02:02 Dextrose 50% Syringe 50 Ml IVP PER PROTOCOL PRN Hypoglycemia Protocol Duloxetine HCl 60 mg 09/29/24 01:59 Duloxetine Hcl 60 Mg Capsule.Dr PO DAILY PRN Pain Furosemide 40 mg 09/29/24 09:00 Furosemide 10 Mg/Ml 4 Ml Vial IV Q12HR [facility] Gabapentin 300 mg 09/29/24 09:00 Gabapentin 300 Mg Cap PO TID [facility] Insulin Aspart 0 unit 09/29/24 07:30 09/29/24 06:27 Insulin Aspart (Novolog) 100 Unit/Ml Vial SQ Not Given ACHS [facility] Protocol Losartan Potassium 50 mg 09/29/24 09:00 Losartan 50 Mg Tab PO DAILY [facility] Montelukast Sodium 10 mg 09/29/24 09:00 Montelukast 10 Mg Tab PO DAILY [facility] Naloxone HCl 0.2 mg 09/27/24 21:19 Naloxone 0.4 Mg/Ml 1 Ml Vial IV Q2M PRN Opioid Reversal Nifedipine 60 mg 09/29/24 09:00 Nifedipine Xl 60 Mg Tab.Er.24 PO DAILY [facility] Ondansetron HCl 4 mg 09/27/24 21:19 Ondansetron 4 Mg/2 Ml Vial IVP Q8HR PRN Nausea And Vomiting Pantoprazole Sodium 40 mg 09/29/24 07:30 09/29/24 06:28 Pantoprazole 40 Mg Tablet PO 40 mg AC-BRKFST DAWNA Administration Tiotropium [place] 2 puff 09/29/24 08:00 Tiotropium 2.5 Mcg Inhaler INHALATION RT-DAILY [facility] Zolpidem Tartrate 10 mg 09/28/24 22:28 09/28/24 23:21 Zolpidem 5 Mg Tab PO 10 mg HS PRN Administration Insomnia Intake and Output 09/28/24 09/29/24 09/29/24 22:59 06:59 14:59 Output Total 300 Balance -300 Output: Urine 300 Other: Voiding Method Toilet # Voids 1 09/28/24 05:33 09/28/24 05:33
[2024-09-29 16:33] LABS: Glucose,Whole Blood 120 mg/dL (70-110)
[2024-09-29] MEDS: carvediloL 12.5 MG TAB PO SCH (16:59)
--- NOTE | 2024-09-29 17:19 | CA ---
Transthoracic Echo Report Name: Darren Wheeler Age: 74 Gender: M : 1950 Exam Date: 09/29/2024 14:18 Exam Location: [facility] Ht (in): 69 Wt (lb): 277 Ordering Physician: Ashley Snowden Attending/Referring Phys: [id number], Isi [employer] Mechanic Zaira Rodriguez RDCS Procedure CPT: Indications: LVF Cardiac Hx: Technical Quality: Technically difficult study Contrast 1: Definity Total Dose (mL): 2 Contrast 2: Total Dose (mL): MEASUREMENTS (Male / Female) Normal Values 2D ECHO LV Diastolic Diameter PLAX 5.6 cm 4.2 - 5.9 / 3.9 - 5.3 cm LV Systolic Diameter PLAX 4.4 cm IVS Diastolic Thickness 1.1 cm 0.6 - 1.0 / 0.6 - 0.9 cm LVPW Diastolic Thickness 1.1 cm 0.6 - 1.0 / 0.6 - 0.9 cm LV Relative Wall Thickness 0.4 RV Internal Dim ED PLAX 4.0 cm LA Systolic Diameter LX 4.0 cm 3.0 - 4.0 / 2.7 - 3.8 cm LV Diastolic Volume MOD BP 176.1 cm??? 67 - 155 / 56 - 104 cm??? LV Systolic Volume MOD BP 106.7 cm??? - 58 / 19 - 49 cm??? LV Ejection Fraction MOD BP 39.4 % >= 55 % LV Cardiac Index MOD BP 2495.8 cm???/min???m??? LV Diastolic Volume MOD 4C 169.6 cm??? LV Systolic Volume MOD 4C 93.0 cm??? LV Ejection Fraction MOD 4C 45.1 % LV Cardiac Index MOD 4C 2752.8 cm???/min???m??? LV Diastolic Length 4C 8.8 cm LV Systolic Length 4C 7.4 cm LV Diastolic Volume MOD 2C 180.9 cm??? LV Systolic Volume MOD 2C 97.3 cm??? LV Ejection Fraction MOD 2C 46.2 % LV Cardiac Index MOD 2C 3003.4 cm???/min???m??? LV Diastolic Length 2C 9.0 cm LV Systolic Length 2C 7.6 cm LA Volume 115.1 cm??? 18 - 58 / 22 - 52 cm??? LA Volume Index 45.5 cm???/m??? 16 - 28 cm???/m??? M-MODE Aortic Root Diameter MM 4.1 cm AV Cusp Separation MM 2.6 cm DOPPLER AV Peak Velocity 158.0 cm/s AV Peak Gradient 10.0 mmHg MV Area PHT 2.0 cm??? Mitral E Point Velocity 87.0 cm/s Mitral A Point Velocity 90.9 cm/s Mitral E to A Ratio 1.0 MV Deceleration Time 375.0 ms TR Peak Velocity 277.6 cm/s TR Peak Gradient 30.8 mmHg Right Ventricular Systolic Press 35.8 mmHg FINDINGS Left Ventricle Left ventricular ejection fraction is estimated at 40-45 %. Mildly increased septal wall thickness. Mildly increased left ventricular diastolic volume. Severely increased left ventricular systolic volume. Mildly decreased left ventricular ejection fraction. No obvious regional wall motion abnormalities. Right Ventricle Severe right ventricular dilatation. Mild pulmonary hypertension. Right Atrium Normal right atrial size. No right atrial thrombus or mass seen. Left Atrium Severely increased left atrial volume. Mildly increased left atrial area. No left atrial thrombus or mass present. Mitral Valve Structurally normal mitral valve. Trace to mild mitral regurgitation. No mitral stenosis. Aortic Valve Trileaflet aortic valve. No aortic valve stenosis or regurgitation. Tricuspid Valve Structurally normal tricuspid valve. Mild tricuspid regurgitation. Pulmonic Valve Structurally normal pulmonic valve. No pulmonic regurgitation. Pericardium No pericardial effusion. Aorta Moderate aortic dilatation at the level of the sinuses of valsalva 41 mm CONCLUSIONS Left ventricular ejection fraction 40-45% with inferior hypokinesis RVSP 36 Mildly dilated left atrium Trace to mild mitral regurgitation Mild tricuspid regurgitation Aortic root 4.1 cm Previewed by: Dr. Nico Diaz DO (Electronically Signed) Final Date: 29 September 2024 17:18
[2024-09-29 20:59] LABS: Glucose,Whole Blood 191 mg/dL (70-110)
[2024-09-29] MEDS: ATORVASTATIN 10 MG TAB PO SCH (21:57)
[2024-09-30 02:53] LABS: Glucose,Whole Blood 88 mg/dL (70-110)
--- NOTE | 2024-09-30 02:56 | P.PN ---
Subjective Progress Note Date: 09/29/24 This is a pleasant 74-year-old male who presented to the emergency department with recurrent falls and generalized weakness with concerns of recurrent hypoglycemia. Patient follows with Dr. Brooks out of [facility] as he previously lived down there and unsure but was recently hospitalized at [place] and reported the same symptoms. Med reconciliation ongoing as they are not accurate and were recently changed from previous hospitalization. Patient does take glipizide along with metformin and will hold for now and start with sliding scale. Patient's chest x-ray in the ER showed bilateral pleural effusions with pulmonary vascular congestion. Patient denies history of heart failure although is a poor historian. Medical records state he has history of atrial fibrillation, COPD, diabetes mellitus, GERD, hyperlipidemia, hypertension, gout with neuropathy and chronic pain and former smoker. Patient currently on 3 L via nasal cannula and reports does not wear oxygen outpatient although occasionally uses inhalers. Again patient is poor historian. Will have PT/OT therapy evaluate the patient. 09/29/2024 Patient is seen in follow-up this morning having some abnormal rhythms on telem etry monitoring and have consulted cardiology as BNP was elevated and concerns for some pulmonary vascular congestion on imaging. Likely congestive heart failure and 2D echo is ordered and pending. Patient continues on oxygen and recommend to wean FiO2 as tolerated. Continuing to await [place] records as patient was reportedly recently discharged from their earlier this week. Blood sugars remain on the lower side and will continue with sliding scale for now. Continue holding oral diabetic agents. Magnesium continues to be low and will replace per protocol and follow-up on repeat labs. Awaiting PT/OT therapy evaluation and case management consultation. Review of systems: Constitutional: No reports of fatigue, fever, or chills Cardiovascular: No reports of chest pain or palpitations Respiratory: reports of shortness of breath with exertion GI: No reports of nausea, vomiting, or diarrhea : No reports of dysuria or retention Neurovascular: reports of generalized weakness All medications have been reviewed Active Medications Acetaminophen (Acetaminophen Tab 325 Mg Tab) 650 mg PO Q6HR PRN PRN Reason: Fever and/ or Pain Last Admin: 09/29/24 08:55 Dose: 650 mg Albuterol Sulfate (Albuterol Nebulized 2.5 Mg/3 Ml) 2.5 mg INHALATION RT-QID PRN PRN Reason: Shortness Of Breath Or Wheezing Albuterol/Ipratropium (Ipratropium-Albuterol 3 Ml Neb) 3 ml INHALATION RT-TID PRN PRN Reason: Shortness Of Breath Or Wheezing Allopurinol (Allopurinol 300 Mg Tab) 300 mg PO DAILY [facility] Last Admin: 09/29/24 08:55 Dose: 300 mg Atorvastatin Calcium (Atorvastatin 10 Mg Tab) 10 mg PO HS [facility] Last Admin: 09/29/24 21:57 Dose: 10 mg Budesonide/Formoterol Fumarate (Symbicort 160-4.5 Mcg Inhaler) 2 puff INHALATION RT-BID [facility] Last Admin: 09/29/24 21:07 Dose: 2 puff Carvedilol (Carvedilol 12.5 Mg Tab) 25 mg PO BID-W/MEALS [facility] Last Admin: 09/29/24 16:59 Dose: 25 mg Cyclobenzaprine HCl (Cyclobenzaprine 10 Mg Tab) 10 mg PO TID PRN PRN Reason: Spasms Dextrose/Water (Dextrose 50% Syringe 50 Ml) 25 ml IVP PER PROTOCOL PRN; Protocol PRN Reason: Hypoglycemia Dextrose/Water (Dextrose 50% Syringe 50 Ml) 50 ml IVP PER PROTOCOL PRN; Protocol PRN Reason: Hypoglycemia Duloxetine HCl (Duloxetine Hcl 60 Mg Capsule.Dr) 60 mg PO DAILY PRN PRN Reason: Pain Furosemide (Furosemide 10 Mg/Ml 4 Ml Vial) 40 mg IV Q12HR [facility] Last Admin: 09/29/24 21:51 Dose: Not Given Gabapentin (Gabapentin 300 Mg Cap) 300 mg PO TID [facility] Last Admin: 09/29/24 21:57 Dose: 300 mg Insulin Aspart (Insulin Aspart (Novolog) 100 Unit/Ml Vial) 0 unit SQ ACHS [facility]; Protocol Last Admin: 09/29/24 21:57 Dose: 2 unit Losartan Potassium (Losartan 50 Mg Tab) 50 mg PO DAILY [facility] Last Admin: 09/29/24 08:55 Dose: 50 mg Miscellaneous Information (Magnesium Replacement Protocol 1 Each Misc) 1 each MISCELLANE DAILY PRN; Protocol PRN Reason: Per Protocol Montelukast Sodium (Montelukast 10 Mg Tab) 10 mg PO DAILY [facility] Last Admin: 09/29/24 08:54 Dose: 10 mg Naloxone HCl (Naloxone 0.4 Mg/Ml 1 Ml Vial) 0.2 mg IV Q2M PRN PRN Reason: Opioid Reversal Nifedipine (Nifedipine Xl 60 Mg Tab.Er.24) 60 mg PO DAILY [facility] Last Admin: 09/29/24 08:55 Dose: 60 mg Ondansetron HCl (Ondansetron 4 Mg/2 Ml Vial) 4 mg IVP Q8HR PRN PRN Reason: Nausea And Vomiting Last Admin: 09/29/24 09:13 Dose: 4 mg Pantoprazole Sodium (Pantoprazole 40 Mg Tablet) 40 mg PO AC-BRKFST [facility] Last Admin: 09/29/24 06:28 Dose: 40 mg Tiotropium [place] (Tiotropium 2.5 Mcg Inhaler) 2 puff INHALATION RT-DAILY [facility] Last Admin: 09/29/24 08:41 Dose: 2 puff Zolpidem Tartrate (Zolpidem 5 Mg Tab) 10 mg PO HS PRN PRN Reason: Insomnia Last Admin: 09/28/24 23:21 Dose: 10 mg PHYSICAL EXAMINATION: GENERAL: The patient is asleep although easily arousable, alert and oriented x3, not in any acute distress. Well developed, elderly appearing, morbidly obese. HEENT: Pupils are round and equally reacting to light. EOMI. No scleral icterus. No conjunctival pallor. Normocephalic, atraumatic. No pharyngeal erythema. No thyromegaly. CARDIOVASCULAR: S1 and S2 muffled PULMONARY: Diminished breath sounds bilaterally with a few scattered crackles noted at the bases. ABDOMEN: Soft, obese, nontender, nondistended, normoactive bowel sounds. No palpable organomegaly. MUSCULOSKELETAL: No joint swelling or deformity. EXTREMITIES: No cyanosis, clubbing, or pedal edema. NEUROLOGICAL: Gross neurological examination did not reveal any focal deficits. Diffusely weak SKIN: No rashes. Assessment: Falls, mechanical with recurrent falls and generalized weakness Diabetes mellitus, type II uncontrolled with hypoglycemia Atrial fibrillation history Congestive heart failure, unknown EF Hypomagnesemia, being replaced Morbid obesity with a BMI of 40.9 Hyperlipidemia history Hypertension history Chronic pain history GERD History of COPD, not in exacerbation Acute hypoxic respiratory failure, possibly secondary to pulmonary vascular congestion, likely congestive heart failure, echo is pending GI prophylaxis DVT prophylaxis Full code Plan: Patient was admitted with recurrent hypoglycemia although when asking patient, he is a poor historian and reports unsure why he was hospitalized Patient was recently hospitalized at [facility] and awaiting to obtain records. Records release was faxed by nursing yesterday. Chest x-ray showing pulmonary vascular congestion and BNP elevated above 2000, continue Lasix twice daily and will consult cardiology and appreciate input and recommendations Possibly obtain a 2D echo if 1 was not done previously recently at [place] last week Monitor blood sugars before meals and at bedtime and continue with sliding scale, hold oral diabetic agents for now Home medications reviewed and resumed as appropriate and will discuss further with girlfriend regarding accurate medication reconciliation. Nursing staff reports multiple medications were adjusted while recently at hospital. Recommend PT/OT therapy evaluation. Will discuss with case management and family if patient will require ECF Cepheid testing including COVID, influenza, RSV are negative. Reportedly girlfriend at home is positive for influenza Due to multiple complex medical issues, overall prognosis is guarded The impression and plan of care has been dictated by Martha Fitzpatrick, Nurse Practitioner as directed. Dr. Brian MD I have performed a history and examination and MDM of this patient, discussed the same with the dictator, and agree with the dictator's assessment and plan as written ,documented as a scribe. Based on total visit time, I have performed more than 50% of the visit. Objective - Vital Signs Vital signs: Vital Signs Temp 97.4 F L 09/29/24 20:29 Pulse 48 L 09/29/24 20:29 Resp 17 09/29/24 20:29 BP 108/54 09/29/24 20:29 Pulse Ox 99 09/29/24 20:29 FiO2 Intake & Output 09/29/24 09/29/24 09/30/24 06:59 18:59 06:59 Output Total 300 300 Balance -300 -300 Output: Urine 300 300 Other: Voiding Method Toilet Toilet Toilet # Voids 1 2 # Bowel Movements 1 - Labs CBC & Chem 7: 09/29/24 03:15 09/29/24 03:15 Labs: Abnormal Lab Results - Last 24 Hours (Table) 09/28/24 09/29/24 09/29/24 Range/Units 05:30 03:15 03:15 WBC 3.99 L (4.50-10.00) X 10*3/uL RBC 3.97 L (4.40-5.60) X 10*6/uL MCV 103.5 H (80.0-97.0) FL MCH 32.7 H (27.0-32.0) pg MCHC 31.6 L (32.0-37.0) g/dL Plt Count 112 L (140-440) X 10*3/uL Neutrophils # 1.64 L (1.80-7.70) X 10*3/uL Carbon Dioxide 31.9 H (21.6-31.8) mmol/L BUN 7.1 L (9.0-27.0) mg/dL BUN/Creatinine Ratio 10.14 L (12.00-20.00) Ratio Glucose 112 H (70-110) mg/dL POC Glucose (mg/dL) (70-110) mg/dL Magnesium 1.3 L (1.5-2.4) mg/dL NT-Pro-B Natriuret Pep (0-125) pg/mL Free T3 pg/mL 2.10 L (2.30-4.20) pg/mL 09/29/24 09/29/24 09/29/24 Range/Units 03:15 11:33 16:31 WBC (4.50-10.00) X 10*3/uL RBC (4.40-5.60) X 10*6/uL MCV (80.0-97.0) FL MCH (27.0-32.0) pg MCHC (32.0-37.0) g/dL Plt Count (140-440) X 10*3/uL Neutrophils # (1.80-7.70) X 10*3/uL Carbon Dioxide (21.6-31.8) mmol/L BUN (9.0-27.0) mg/dL BUN/Creatinine Ratio (12.00-20.00) Ratio Glucose (70-110) mg/dL POC Glucose (mg/dL) 149 H 120 H (70-110) mg/dL Magnesium (1.5-2.4) mg/dL NT-Pro-B Natriuret Pep 2178 H (0-125) pg/mL Free T3 pg/mL (2.30-4.20) pg/mL 09/29/24 Range/Units 20:57 WBC (4.50-10.00) X 10*3/uL RBC (4.40-5.60) X 10*6/uL MCV (80.0-97.0) FL MCH (27.0-32.0) pg MCHC (32.0-37.0) g/dL Plt Count (140-440) X 10*3/uL Neutrophils # (1.80-7.70) X 10*3/uL Carbon Dioxide (21.6-31.8) mmol/L BUN (9.0-27.0) mg/dL BUN/Creatinine Ratio (12.00-20.00) Ratio Glucose (70-110) mg/dL POC Glucose (mg/dL) 191 H (70-110) mg/dL Magnesium (1.5-2.4) mg/dL NT-Pro-B Natriuret Pep (0-125) pg/mL Free T3 pg/mL (2.30-4.20) pg/mL
[2024-09-30 06:31] LABS: Glucose,Whole Blood 77 mg/dL (70-110)
[2024-09-30 08:49] LABS: ALT 22 U/L (10-49); AST 22 U/L (14-35); Albumin 3.3 g/dL (3.8-4.9); Albumin/Globulin Ratio 1.03 Ratio (1.60-3.17); Alkaline Phosphatase 92 U/L (41-126); Blood Urea Nitrogen 10.5 mg/dL (9.0-27.0); Calcium 8.3 mg/dL (8.7-10.3); Carbon Dioxide 34.5 mmol/L (21.6-31.8); Chloride 100 mmol/L (96-109); Globulin 3.2 g/dL (1.6-3.3); Glucose 97 mg/dL (70-110); Potassium 3.7 mmol/L (3.5-5.5); Sodium 143 mmol/L (135-145); Total Bilirubin 0.4 mg/dL (0.3-1.2); Total Protein 6.5 g/dL (6.2-8.2)
[2024-09-30 09:07] LABS: HCT 41.8 % (39.6-50.0); HGB 12.8 g/dL (13.0-17.0); MCH 32.3 pg (27.0-32.0); MCHC 30.6 g/dL (32.0-37.0); MCV 105.6 FL (80.0-97.0); Mean Platelet Volume 10.8 FL (9.5-12.2); NRBC Per 100 WBC 0 X 10*3/uL (0.00-0.01); Platelet Count 124 X 10*3/uL (140-440); RBC 3.96 X 10*6/uL (4.40-5.60)
[2024-09-30 10:09] LABS: Basophils # (A) 0.02 X 10*3/uL (0.00-0.10); Basophils % (A) 0.6 %; Eosinophils # (A) 0.08 X 10*3/uL (0.04-0.35); Eosinophils % (A) 2.2 %; Immature Grans, Automated 0 %; Lymphocytes # (A) 1.24 X 10*3/uL (0.90-5.00); Lymphocytes % (A) 34.4 %; Macrocytosis (M) 2+ (None Seen); Monocytes # (A) 0.56 X 10*3/uL (0.20-1.00); Monocytes % (A) 15.6 %; Neutrophils % (A) 47.2 %
[2024-09-30] MEDS ORDERED: ALPRAZolam 0.25 MG TAB PO PRN (10:54)
[2024-09-30] MEDS ORDERED: NITROGLYCERIN SL TABS 0.4 MG TAB SUBLINGUAL PRN (10:54)
[2024-09-30 12:06] LABS: Glucose,Whole Blood 100 mg/dL (70-110)
--- NOTE | 2024-09-30 13:04 | P.PN ---
Subjective Progress Note Date: 09/30/24 Reason for Consult (text): CHF, pleural effusion, shortness of breath History of present illness: This is a 74-year-old male patient with past medical history of diabetes mellitus type 2, hypertension, hyperlipidemia, COPD, GERD. We have been asked to evaluate the patient for CHF, pleural effusion, shortness of breath. Patient presented to the emergency center due to altered mental status and confusion, generalized weakness and shortness of breath. Patient apparently had a fall and has had multiple falls was unable to get up from the floor. Patient is also had difficulty with hypoglycemia and found to have blood sugar of only 48. Patient states that he has had ongoing problems with weakness and has no strength in his arms or legs. He denies history of heart failure. He does not have home oxygen. He was recently at [facility] about a week ago because his medications got mixed up. He normally lives with his girlfriend. Regarding atrial fibrillation. He thinks that he may have been told that he had atrial fibrillation but he is not on blood thinners. He denies smoking, alcohol use, marijuana or drug use. He states he may have had a stress test done 5 to 10 years ago. No previous catheterization done. He thinks he may have had a history of a stroke. Blood pressure 136/64, heart rate 62, 695% on 2 L nasal cannula. Patient is scheduled to start IV Lasix 40 mg every 12 hours this morning. -EKG: Sinus rhythm 50 bpm, T wave abnormality. -Chest x-ray: Cardiomegaly, pulmonary vascular congestion and bilateral pleural effusions. -X-ray pelvis: No acute osseous pathology. -Laboratory studies: WBC 2.9, hemoglobin 12.6, platelet count 97. Sodium 139, potassium 3.5, BUN 12 and creatinine 0.74. Initial glucose 48. Troponin negative x 1. proBNP 864. TSH 5.48 and normal free T4 at 1.21. Urine drug screen positive for benzodiazepines. Serum alcohol less than 10. -Home cardiac medications: Atorvastatin 10 mg daily, Coreg 25 mg twice daily, losartan 50 mg daily, Procardia XL 60 mg daily. 09/30 Patient seen and examined. Reviewed records from [facility] where patient was hospitalized earlier this month. EF was noted to be 50%. The only documentation of atrial fibrillation was on the echocardiogram which is not reliable. No other documentation of atrial fibrillation was noted in the record. Echocardiogram on this hospitalization reveals EF of 40 to 45%, RVSP 36, trace to mild mitral regurgitation, mild tricuspid regurgitation, aortic root 4.1 cm. Patient has been maintained on IV Lasix 40 mg every 12 hours. He denies having any chest pain or chest pressure. He states his slurred speech is better. No shortness of breath. He states he is always on home oxygen. He states he has been taking all of his medications at home as directed. Reviewed results of testing with the patient. Discussed with patient option of cardiac catheterization which he is agreeable to move forward with today. Physical examination: Gen: This is a 74-year-old morbidly obese male in no acute distress VS: reviewed HEENT: Head is atraumatic, normocephalic. Pupils equal, round. Sclerae is anicteric. NECK: Supple. No JVD. LUNGS: Diminished breath sounds. No intercostal retractions. HEART: Regular rate and rhythm. ABDOMEN: Soft No tenderness. EXTREMITIES: No pedal edema. No calf tenderness. NEUROLOGICAL: Patient is awake, alert and oriented x3. Assessment: Acute on chronic heart failure, unknown EF Abnormal EKG with dyspnea and fatigue, rule out CAD Multiple falls Metabolic encephalopathy Hypoglycemia Pancytopenia Diabetes mellitus type 2 Hypertension Hyperlipidemia COPD GERD Morbid obesity with BMI of 40 Plan: Continue patient's home cardiac medications Continue IV Lasix 40 mg every 12 hours Monitor HELENA, daily weights, electrolytes and renal function Continue n.p.o. status Schedule patient for cardiac catheterization today with Dr. Diaz Regarding atrial fibrillation. No documentation available to confirm this. No anticoagulation at this time Further recommendations to follow based upon clinical course. Nurse practitioner note has been reviewed, I agree with documented findings and plan of care. Patient was seen and examined. Objective - Vital Signs Vital signs: Vital Signs Temp 98.2 F 09/30/24 07:29 Pulse 54 L 09/30/24 07:45 Resp 16 09/30/24 07:45 BP 106/64 09/30/24 07:29 Pulse Ox 96 09/30/24 07:29 FiO2 Intake & Output 09/29/24 09/30/24 09/30/24 18:59 06:59 18:59 Intake Total 540 Output Total 300 Balance -300 540 Intake: Oral 540 Output: Urine 300 Other: Voiding Method Toilet Toilet Toilet # Voids 2 2 1 # Bowel Movements 1 - Labs CBC & Chem 7: 09/30/24 03:32 09/30/24 03:32 Labs: Abnormal Lab Results - Last 24 Hours (Table) 09/28/24 09/29/24 09/29/24 Range/Units 05:30 03:15 11:33 WBC (4.50-10.00) X 10*3/uL RBC (4.40-5.60) X 10*6/uL Hgb (13.0-17.0) g/dL MCV (80.0-97.0) FL MCH (27.0-32.0) pg MCHC (32.0-37.0) g/dL Plt Count (140-440) X 10*3/uL Carbon Dioxide (21.6-31.8) mmol/L BUN/Creatinine Ratio (12.00-20.00) Ratio POC Glucose (mg/dL) 149 H (70-110) mg/dL Calcium (8.7-10.3) mg/dL NT-Pro-B Natriuret Pep 2178 H (0-125) pg/mL Albumin (3.8-4.9) g/dL Albumin/Globulin Ratio (1.60-3.17) Ratio Free T3 pg/mL 2.10 L (2.30-4.20) pg/mL 09/29/24 09/29/24 09/30/24 Range/Units 16:31 20:57 03:32 WBC 3.60 L (4.50-10.00) X 10*3/uL RBC 3.96 L (4.40-5.60) X 10*6/uL Hgb 12.8 L (13.0-17.0) g/dL MCV 105.6 H (80.0-97.0) FL MCH 32.3 H (27.0-32.0) pg MCHC 30.6 L (32.0-37.0) g/dL Plt Count 124 L (140-440) X 10*3/uL Carbon Dioxide (21.6-31.8) mmol/L BUN/Creatinine Ratio (12.00-20.00) Ratio POC Glucose (mg/dL) 120 H 191 H (70-110) mg/dL Calcium (8.7-10.3) mg/dL NT-Pro-B Natriuret Pep (0-125) pg/mL Albumin (3.8-4.9) g/dL Albumin/Globulin Ratio (1.60-3.17) Ratio Free T3 pg/mL (2.30-4.20) pg/mL 09/30/24 Range/Units 03:32 WBC (4.50-10.00) X 10*3/uL RBC (4.40-5.60) X 10*6/uL Hgb (13.0-17.0) g/dL MCV (80.0-97.0) FL MCH (27.0-32.0) pg MCHC (32.0-37.0) g/dL Plt Count (140-440) X 10*3/uL Carbon Dioxide 34.5 H (21.6-31.8) mmol/L BUN/Creatinine Ratio 10.50 L (12.00-20.00) Ratio POC Glucose (mg/dL) (70-110) mg/dL Calcium 8.3 L (8.7-10.3) mg/dL NT-Pro-B Natriuret Pep (0-125) pg/mL Albumin 3.3 L (3.8-4.9) g/dL Albumin/Globulin Ratio 1.03 L (1.60-3.17) Ratio Free T3 pg/mL (2.30-4.20) pg/mL
[2024-09-30] MEDS: ATORVASTATIN 80 MG TAB PO STA (13:13)
[2024-09-30] MEDS: ASPIRIN 325 MG TAB PO STA (13:13)
[2024-09-30] MEDS: HEPARIN SODIUM,PORCINE 10,000 UNIT in SODIUM CHLORIDE 0.9% 1,000 ML IRRIGATION PRN (15:50)
[2024-09-30] MEDS: HEPARIN SODIUM,PORCINE (1 ML) 2,500 UNIT in SODIUM CHLORIDE 0.9% 250 ML IRRIGATION PRN (15:51)
[2024-09-30] MEDS: fentaNYL (PF) 50 MCG/ML 2 ML AMP IVP ONE (16:21)
[2024-09-30] MEDS: LIDOCAINE 1% INJ 10MG/ML (20 ML MDV) SQ ONE (16:21)
[2024-09-30] MEDS: MIDAZOLAM 2 MG/2 ML VIAL IVP ONE (16:21)
[2024-09-30] MEDS: VERAPAMIL SYRINGE (5 MG/10 ML) INTRAARTER ONE ×2 (16:21→16:39)
[2024-09-30] MEDS: HEPARIN SODIUM 1,000 UN/ML (10ML VL) IVP ONE ×2 (16:26→17:34)
[2024-09-30] MEDS: CLOPIDOGREL 75 MG TAB PO ONE (16:42)
[2024-09-30] MEDS: NITROGLYCERIN 1000MCG/10ML SYRINGE INTRACORON ONE ×2 (16:48→17:06)
[2024-09-30] MEDS: IOPAMIDOL-370 100ML BTL INJ ONE ×3 (17:10→17:11)
[2024-09-30] MEDS: SODIUM CHLORIDE 0.9% 1,000 ML IV ONE (17:12)
[2024-09-30] MEDS ORDERED: ATROPINE SULFATE 0.1 MG/ML 10ML SYRINGE IV PRN (17:35)
[2024-09-30] MEDS ORDERED: RX INFO: IV CONTRAST WAS GIVEN 1 EACH MISC MISCELLANE PRN (17:35)
[2024-09-30] MEDS ORDERED: MAG HYDROX/AL HYDROX/SIMETH 30 ML CUP PO PRN (17:35)
--- NOTE | 2024-09-30 17:35 | P.PRCINT ---
Percutaneous Coronary Int. - Percutaneous Coronary Intervention Percutaneous Coronary Intervention: PROCEDURES PERFORMED: Left heart catheterization, bilateral coronary angiography, ultrasound guided arterial access, PCI mid LAD with overlapping 3.5 x 33mm and 3.5 x 8mm Xience LUZ MARIA, post dilated with a 3.75mm NC balloon, IVUS LAD INDICATION: Cardiomyopathy CONSENT:I have discussed the risks, benefits and alternative therapies for the above-mentioned procedure and for both sedation/analgesia as well as necessary b lood product administration, if indicated, as they pertain to this patient. The patient has indicated understanding and acceptance of the risks and procedures discussed. PROCEDURE: After the risks, benefits and alternatives of the above mentioned procedure explained in detail with the patient, informed consent was obtained. Patient was taken to the catheterization lab and prepped and draped in usual fashion. Ultrasound guidance was used to assess for arterial access. 1% lidocaine was used to anesthetize the right radial artery. A 6-Malay sheath was placed in the right radial artery using modified Seldinger technique and ultrasound guidance. Left coronary angiography was performed with a 5-Malay JL 3.5 catheter and right coronary angiography was performed with a 6-Malay AL 1.0 catheter in various views. A 5-Malay FR5 catheter was inserted into the left ventricle and pressure measurements were obtained. the decision was made to perform PCI of LAD. Heparin was given. A 6-Malay CLS 4.0 guide was used to engage the left main. A 0.014 BMW wire was advanced in the distal LAD. Predilation was performed with a 2.5 mm balloon. Intravascular ultrasound was performed which showed reference vessel 3.75 mm. There was a small landing zone just distal to thediagonal 2 branch. There was diffuse calcification and therefore initially chocolate 3.5 x 15 mm balloon was used how ever inadequate expansion therefore shock wave 3.5 mm balloon was used with better expansion. Next a 3.5 x 33 mm drug-eluting stent was placed just after the diagonal 2 branch to the mid LAD. There was small amount of geographical mass of the distal LAD and therefore this was covered with a 3.5 x 8 mm drug- eluting stent. The stent was postdilated with a 3.75 mm noncompliant balloon. Final angiograms were performed. Preintervention there was 90% stenosis and ALEM-3 flow and postintervention there was less than 10% stenosis with ALEM 3 flow. The right radial sheath was removed and a TR band was placed with hemostasis achieved. The patient tolerated the procedure well. The patient was noted to be in atrial fibrillation which was a new diagnosis for him during and before the procedure. Patient was transported back to the post catheterization holding area in stable condition. Conscious Sedation: Patient was monitored under the direct supervision of myself for conscious sedation using Versed and fentanyl for a total duration of 58 minutes HEMODYNAMICS: Ao: 154/72 LV: 139/7, LVEDP 13 SELECTIVE CORONARY ARTERIOGRAPHY: LEFT MAIN: The left main is a large caliber vessel which bifurcates into the LAD and circumflex. There is no significant stenosis. LEFT ANTERIOR DESCENDING CORONARY ARTERY: LAD is a large caliber vessel which wraps around to the apex. There is mild proximal LAD 10-20% stenosis at a more focal diffuse 50% mid LAD stenosis with a more focal 90% stenosis just after diagonal 2 branch. Otherwise there are mild luminal irregularities. LEFT CIRCUMFLEX CORONARY ARTERY: Left circumflex is a moderate caliber vessel with mild luminal irregularities. RIGHT CORONARY ARTERY: The right coronary artery is a large caliber vessel which gives off a PDA and PLV branch and is the dominant vessel. There are mild luminal irregularities of the RCA FINAL IMPRESSION: 1. CAD as described above with mild luminal irregularities in a more focal mid LAD 90% stenosis. 2. Normal left sided filling pressures 3. S/p PCI mid LAD with overlapping 3.5 x 33mm and 3.5 x 8mm Xience LUZ MARIA, post dilated with a 3.75mm NC balloon 4. New onset Afib noted during procedure PLAN: 1. Aggressive risk factor modification per most recent ACC/AHA guidelines. 2. Continue Plavix and anticoagulation with Eliquis for 12 months given new onset of atrial fibrillation
[2024-09-30] MEDS: ALPRAZolam 0.5 MG TAB PO PRN (17:58)
[2024-09-30 18:07] LABS: Basophils % (A) 0 %; Eosinophils # (A) 0.1 k/uL (0-0.7); Eosinophils % (A) 2 %; HCT 44.1 % (39.0-53.0); HGB 14.1 gm/dL (13.0-17.5); Lymphocytes # (A) 1.3 k/uL (1.0-4.8); Lymphocytes % (A) 25 %; MCH 33.1 pg (25.0-35.0); MCHC 31.9 g/dL (31.0-37.0); MCV 103.9 fL (80.0-100.0); Macrocytosis Slight; Mean Platelet Volume 8.1; Monocytes # (A) 0.4 k/uL (0-1.0); Monocytes % (A) 8 %; Neutrophils # (A) 3.2 k/uL (1.3-7.7); Neutrophils % (A) 62 %; Platelet Count 132 k/uL (150-450); RBC 4.24 m/uL (4.30-5.90); RDW 14.1 % (11.5-15.5); WBC 5.2 k/uL (3.8-10.6)
[2024-09-30 18:38] LABS: INR 1.3 (<1.2); Prothrombin Time 13.7 sec (10.0-12.5)
[2024-09-30 18:54] LABS: Partial Thromboplastin Time >200.0 sec (22.0-30.0)
[2024-09-30 20:00] LABS: Glucose,Whole Blood 159 mg/dL (70-110)
[2024-10-01 00:37] LABS: Basophils % (A) 0 %; Eosinophils # (A) 0.1 k/uL (0-0.7); Eosinophils % (A) 2 %; HCT 42.9 % (39.0-53.0); HGB 13.8 gm/dL (13.0-17.5); Hypochromasia Slight; Lymphocytes # (A) 1.3 k/uL (1.0-4.8); Lymphocytes % (A) 35 %; MCH 33.7 pg (25.0-35.0); MCHC 32.2 g/dL (31.0-37.0); MCV 104.5 fL (80.0-100.0); Macrocytosis Slight; Mean Platelet Volume 7.8; Monocytes # (A) 0.4 k/uL (0-1.0); Monocytes % (A) 9 %; Neutrophils # (A) 1.9 k/uL (1.3-7.7); Neutrophils % (A) 51 %; Platelet Count 112 k/uL (150-450); RDW 13.7 % (11.5-15.5); WBC 3.8 k/uL (3.8-10.6)
[2024-10-01 00:54] LABS: INR 1.2 (<1.2); Prothrombin Time 13.1 sec (10.0-12.5)
[2024-10-01] MEDS: HEPARIN SOD,PORK IN 0.45% NACL 25,000 UNIT in 0.45% NACL 1 250ML.BAG IV SCH (00:58)
[2024-10-01] MEDS: HEPARIN SODIUM 1,000 UN/ML (10ML VL) IV PRN (01:02)
--- NOTE | 2024-10-01 04:59 | P.PN ---
Subjective Progress Note Date: 09/30/24 This is a pleasant 74-year-old male who presented to the emergency department with recurrent falls and generalized weakness with concerns of recurrent hypoglycemia. Patient follows with Dr. Brooks out of [facility] as he previously lived down there and unsure but was recently hospitalized at [facility] and reported the same symptoms. Med reconciliation ongoing as they are not accurate and were recently changed from previous hospitalization. Patient does take glipizide along with metformin and will hold for now and start with sliding scale. Patient's chest x-ray in the ER showed bilateral pleural effusions with pulmonary vascular congestion. Patient denies history of heart failure although is a poor historian. Medical records state he has history of atrial fibrillation, COPD, diabetes mellitus, GERD, hyperlipidemia, hypertension, gout with neuropathy and chronic pain and former smoker. Patient currently on 3 L via nasal cannula and reports does not wear oxygen outpatient although occasionally uses inhalers. Again patient is poor historian. Will have PT/OT therapy evaluate the patient. 09/29/2024 Patient is seen in follow-up this morning having some abnormal rhythms on telem etry monitoring and have consulted cardiology as BNP was elevated and concerns for some pulmonary vascular congestion on imaging. Likely congestive heart failure and 2D echo is ordered and pending. Patient continues on oxygen and recommend to wean FiO2 as tolerated. Continuing to await [facility] records as patient was reportedly recently discharged from their earlier this week. Blood sugars remain on the lower side and will continue with sliding scale for now. Continue holding oral diabetic agents. Magnesium continues to be low and will replace per protocol and follow-up on repeat labs. Awaiting PT/OT therapy evaluation and case management consultation. 09/30/2024 Patient is seen in follow-up this morning with cardiology following an EF showing 40 to 45% with concerns of cardiomyopathy and suggesting cardiac catheterization and patient is agreeable. Patient is currently n.p.o. and will await report. Patient also to be evaluated by physical therapy with case management following and will likely need ECF on discharge. Patient's mentation is much improved. Patient reports he chronically wears oxygen outpatient although initially he reported he does not wear continuous oxygen. Patient is afebrile with no reports of chest pain or shortness of breath. Patient has been tolerating diet and blood sugars have been monitored closely. Will continue with sliding scale at this time. Review of systems: Constitutional: No reports of fatigue, fever, or chills Cardiovascular: No reports of chest pain or palpitations Respiratory: reports of shortness of breath with exertion GI: No reports of nausea, vomiting, or diarrhea : No reports of dysuria or retention Neurovascular: reports of generalized weakness All medications have been reviewed PHYSICAL EXAMINATION: GENERAL: The patient is asleep although easily arousable, alert and oriented x3, not in any acute distress. Well developed, elderly appearing, morbidly obese. HEENT: Pupils are round and equally reacting to light. EOMI. No scleral icterus. No conjunctival pallor. Normocephalic, atraumatic. No pharyngeal erythema. No thyromegaly. CARDIOVASCULAR: S1 and S2 muffled PULMONARY: Diminished breath sounds bilaterally with a few scattered crackles noted at the bases. ABDOMEN: Soft, obese, nontender, nondistended, normoactive bowel sounds. No palpable organomegaly. MUSCULOSKELETAL: No joint swelling or deformity. EXTREMITIES: No cyanosis, clubbing, or pedal edema. NEUROLOGICAL: Gross neurological examination did not reveal any focal deficits. Diffusely weak SKIN: No rashes. Assessment: Falls, mechanical with recurrent falls and generalized weakness Diabetes mellitus, type II uncontrolled with hypoglycemia Atrial fibrillation history questionable as patient is poor historian and not currently on anticoagulation Acute on chronic congestive heart failure, EF 40 to 45% with concerns of cardi omyopathy Hypomagnesemia, being replaced Morbid obesity with a BMI of 40.9 Hyperlipidemia history Hypertension history Chronic pain history GERD History of COPD, not in exacerbation Acute on chronic hypoxic respiratory failure, likely secondary to congestive heart failure, EF is 40 to 45% with concerns of cardiomyopathy GI prophylaxis DVT prophylaxis Full code Plan: Patient was admitted with recurrent hypoglycemia although when asking patient, he is a poor historian and reports unsure why he was hospitalized Patient was recently hospitalized at [facility] and awaiting to obtain records. Records release was faxed by nursing Cardiology following with concerns of cardiomyopathy as noted on EF recommending cardiac catheterization and patient is agreeable. Patient is currently n.p.o. and will undergo catheterization today. Will await official report. Monitor blood sugars before meals and at bedtime and continue with sliding scale, hold oral diabetic agents for now Home medications reviewed and resumed as appropriate and will discuss further with girlfriend regarding accurate medication reconciliation. Nursing staff reports multiple medications were adjusted while recently at hospital. Continue PT/OT therapy evaluation. Will discuss with case management and will likely need ECF on discharge Cepheid testing including COVID, influenza, RSV are negative. Reportedly girlfriend at home is positive for influenza Due to multiple complex medical issues, overall prognosis is guarded The impression and plan of care has been dictated by Nurse Dawood Pra ctitioner as directed. Dr. Brian MD I have performed a history and examination and MDM of this patient, discussed the same with the dictator, and agree with the dictator's assessment and plan as written ,documented as a scribe. Based on total visit time, I have performed more than 50% of the visit. Objective - Vital Signs Vital signs: Vital Signs Temp 99.0 F 10/01/24 03:30 Pulse 90 10/01/24 03:30 Resp 16 10/01/24 03:30 BP 99/60 10/01/24 03:30 Pulse Ox 98 10/01/24 03:30 FiO2 Intake & Output 09/30/24 09/30/24 10/01/24 06:59 18:59 06:59 Intake Total 540 200 237 Output Total 1075 Balance 540 200 -838 Intake: IV 200 Oral 540 237 Output: Urine 1075 Other: Voiding Method Toilet Toilet Toilet # Voids 2 1 - Labs CBC & Chem 7: 10/01/24 00:05 09/30/24 03:32 Labs: Abnormal Lab Results - Last 24 Hours (Table) 09/30/24 09/30/24 09/30/24 Range/Units 03:32 03:32 17:47 WBC 3.60 L (4.50-10.00) X 10*3/uL RBC 3.96 L 4.24 L (4.40-5.60) X 10*6/uL Hgb 12.8 L (13.0-17.0) g/dL MCV 105.6 H 103.9 H (80.0-97.0) FL MCH 32.3 H (27.0-32.0) pg MCHC 30.6 L (32.0-37.0) g/dL Plt Count 124 L 132 L (140-440) X 10*3/uL Neutrophils # 1.70 L (1.80-7.70) X 10*3/uL Macrocytosis (manual) 2+ A (None Seen) PT (10.0-12.5) sec INR (<1.2) APTT (22.0-30.0) sec Carbon Dioxide 34.5 H (21.6-31.8) mmol/L BUN/Creatinine Ratio 10.50 L (12.00-20.00) Ratio POC Glucose (mg/dL) (70-110) mg/dL Calcium 8.3 L (8.7-10.3) mg/dL Albumin 3.3 L (3.8-4.9) g/dL Albumin/Globulin Ratio 1.03 L (1.60-3.17) Ratio 09/30/24 09/30/24 10/01/24 Range/Units 17:47 19:59 00:05 WBC (4.50-10.00) X 10*3/uL RBC 4.10 L (4.40-5.60) X 10*6/uL Hgb (13.0-17.0) g/dL MCV 104.5 H (80.0-97.0) FL MCH (27.0-32.0) pg MCHC (32.0-37.0) g/dL Plt Count 112 L (140-440) X 10*3/uL Neutrophils # (1.80-7.70) X 10*3/uL Macrocytosis (manual) (None Seen) PT 13.7 H (10.0-12.5) sec INR 1.3 H (<1.2) APTT >200.0 H* (22.0-30.0) sec Carbon Dioxide (21.6-31.8) mmol/L BUN/Creatinine Ratio (12.00-20.00) Ratio POC Glucose (mg/dL) 159 H (70-110) mg/dL Calcium (8.7-10.3) mg/dL Albumin (3.8-4.9) g/dL Albumin/Globulin Ratio (1.60-3.17) Ratio 10/01/24 Range/Units 00:05 WBC (4.50-10.00) X 10*3/uL RBC (4.40-5.60) X 10*6/uL Hgb (13.0-17.0) g/dL MCV (80.0-97.0) FL MCH (27.0-32.0) pg MCHC (32.0-37.0) g/dL Plt Count (140-440) X 10*3/uL Neutrophils # (1.80-7.70) X 10*3/uL Macrocytosis (manual) (None Seen) PT 13.1 H (10.0-12.5) sec INR 1.2 H (<1.2) APTT (22.0-30.0) sec Carbon Dioxide (21.6-31.8) mmol/L BUN/Creatinine Ratio (12.00-20.00) Ratio POC Glucose (mg/dL) (70-110) mg/dL Calcium (8.7-10.3) mg/dL Albumin (3.8-4.9) g/dL Albumin/Globulin Ratio (1.60-3.17) Ratio
[2024-10-01] MEDS: SODIUM CHLORIDE 0.9% 1,000 ML in EMPTY BAG 1 BAG IV SCH (05:20)
[2024-10-01 05:53] LABS: Glucose,Whole Blood 70 mg/dL (70-110)
[2024-10-01 07:26] LABS: Basophils % (A) 1 %; Eosinophils # (A) 0.1 k/uL (0-0.7); Eosinophils % (A) 2 %; HCT 40.6 % (39.0-53.0); HGB 13.1 gm/dL (13.0-17.5); Hypochromasia Slight; Lymphocytes # (A) 1.6 k/uL (1.0-4.8); Lymphocytes % (A) 35 %; MCH 33.8 pg (25.0-35.0); MCHC 32.4 g/dL (31.0-37.0); MCV 104.4 fL (80.0-100.0); Macrocytosis Slight; Mean Platelet Volume 8.4; Monocytes # (A) 0.5 k/uL (0-1.0); Monocytes % (A) 12 %; Neutrophils # (A) 2.2 k/uL (1.3-7.7); Neutrophils % (A) 48 %; Platelet Count 119 k/uL (150-450); RBC 3.89 m/uL (4.30-5.90); RDW 13.8 % (11.5-15.5); WBC 4.7 k/uL (3.8-10.6)
[2024-10-01 07:57] LABS: ALT 21 U/L (4-49); AST 28 U/L (17-59); African American GFR (CKD) 82 (>60 ml/min/1.73 sqM); Albumin 3.1 g/dL (3.5-5.0); Alkaline Phosphatase 90 U/L (38-126); Blood Urea Nitrogen 14 mg/dL (9-20); Calcium 8.3 mg/dL (8.4-10.2); Chloride 95 mmol/L (98-107); Glucose 73 mg/dL (74-99); Magnesium 1.6 mg/dL (1.6-2.3); Non-African American GFR(CKD) 71 (>60 ml/min/1.73 sqM); Potassium 3.7 mmol/L (3.5-5.1); Sodium 139 mmol/L (137-145); Total Bilirubin 0.8 mg/dL (0.2-1.3); Total Protein 6.4 g/dL (6.3-8.2)
[2024-10-01 08:08] LABS: Anion Gap 5 mmol/L
[2024-10-01 08:12] LABS: Carbon Dioxide 39 mmol/L (22-30)
[2024-10-01 09:08] VITALS: BP 104/70; PULSE 54; RESP 18; TEMP 98.1
[2024-10-01] MEDS: APIXABAN 5 MG TAB PO SCH (10:45)
[2024-10-01] MEDS: ASPIRIN 81 MG PO SCH (10:45)
[2024-10-01] MEDS: CLOPIDOGREL 75 MG TAB PO SCH (10:45)
--- NOTE | 2024-10-01 10:49 | P.PN ---
Subjective HISTORY OF PRESENT ILLNESS: This is a 74-year-old male patient with past medical history of diabetes mellitus type 2, hypertension, hyperlipidemia, COPD, GERD. We have been asked to evaluate the patient for CHF, pleural effusion, shortness of breath. Patient presented to the emergency center due to altered mental status and confusion, generalized weakness and shortness of breath. Patient apparently had a fall and has had multiple falls was unable to get up from the floor. Patient is also had difficulty with hypoglycemia and found to have blood sugar of only 48. Patient states that he has had ongoing problems with weakness and has no strength in his arms or legs. He denies history of heart failure. He does not have home oxygen. He was recently at [facility] about a week ago because his medications got mixed up. He normally lives with his girlfriend. Regarding atrial fibrillation. He thinks that he may have been told that he had atrial fibrillation but he is not on blood thinners. He denies smoking, alcohol use, marijuana or drug use. He states he may have had a stress test done 5 to 10 years ago. No previous catheterization done. He thinks he may have had a history of a stroke. Blood pressure 136/64, heart rate 62, 695% on 2 L nasal cannula. Patient is scheduled to start IV Lasix 40 mg every 12 hours this . -EKG: Sinus rhythm 50 bpm, T wave abnormality. -Chest x-ray: Cardiomegaly, pulmonary vascular congestion and bilateral pleural effusions. -X-ray pelvis: No acute osseous pathology. -Laboratory studies: WBC 2.9, hemoglobin 12.6, platelet count 97. Sodium 139, potassium 3.5, BUN 12 and creatinine 0.74. Initial glucose 48. Troponin negative x 1. proBNP 864. TSH 5.48 and normal free T4 at 1.21. Urine drug screen positive for benzodiazepines. Serum alcohol less than 10. -Home cardiac medications: Atorvastatin 10 mg daily, Coreg 25 mg twice daily, losartan 50 mg daily, Procardia XL 60 mg daily. 10/01/2024 Patient underwent cardiac catheterization yesterday with Dr. Diaz revealing 90% mid LAD stenosis. Patient underwent PCI of the mid LAD with overlapping drug-eluting stents. Patient was also noted to have new onset atrial fibrillation during cardiac catheterization. She is maintaining sinus mechanism this morning. Patient denies chest pain or pressure. He denies shortness of breath. Vital signs are stable. PHYSICAL EXAM: VITAL SIGNS: Reviewed. GENERAL: Well-developed in no acute distress. NECK: Supple. No JVD or thyromegaly LUNGS: Respirations even and unlabored. Lungs essentially clear to auscultation bilaterally. HEART: Regular rate and rhythm. S1 and S2 heard. EXTREMITIES: Normal range of motion. No clubbing or cyanosis. Peripheral pulses intact. No lower extremity edema ASSESSMENT: Acute on chronic heart failure, unknown EF Abnormal EKG with dyspnea and fatigue, status post cardiac catheterization revealing CAD with 90% mid LAD stenosis, status post stenting of mid LAD x 2 New onset paroxysmal atrial fibrillation Multiple falls Metabolic encephalopathy Chronic hypoxic respiratory failure on home oxygen Hypoglycemia Pancytopenia Diabetes mellitus type 2 Hypertension Hyperlipidemia COPD GERD Morbid obesity with BMI of 40 PLAN: Continue triple therapy with aspirin, Plavix, and Eliquis for 1 week. After 1 week discontinue aspirin and continue with Plavix and Eliquis Continue statin. Increase dosage to 40 mg at night. LDL goal less than 70. Continue additional cardiac medications Patient is stable for discharge home this afternoon from a cardiac standpoint Nurse practitioner note has been reviewed by physician. Signing provider agrees with the documented findings, assessment, and plan of care documented by MECHANICAL HANDYMAN as a scribe. Objective - Vital Signs Vital signs: Vital Signs Temp 98.1 F 10/01/24 08:40 Pulse 54 L 10/01/24 08:40 Resp 18 10/01/24 08:40 BP 104/70 10/01/24 08:40 Pulse Ox 96 10/01/24 08:40 FiO2 Intake & Output 09/30/24 10/01/24 10/01/24 18:59 06:59 18:59 Intake Total 200 237 Output Total 1075 Balance 200 -838 Weight 123.3 kg Intake: IV 200 Oral 237 Output: Urine 1075 Other: Voiding Method Toilet Toilet Toilet # Voids 1 - Labs CBC & Chem 7: 10/01/24 06:00 10/01/24 06:00 Labs: Abnormal Lab Results - Last 24 Hours (Table) 09/30/24 09/30/24 09/30/24 Range/Units 03:32 17:47 17:47 RBC 4.24 L (4.30-5.90) m/uL MCV 103.9 H (80.0-100.0) fL Plt Count 132 L (150-450) k/uL Neutrophils # 1.70 L (1.80-7.70) X 10*3/uL Macrocytosis (manual) 2+ A (None Seen) PT 13.7 H (10.0-12.5) sec INR 1.3 H (<1.2) APTT >200.0 H* (22.0-30.0) sec Chloride (98-107) mmol/L Carbon Dioxide (22-30) mmol/L Glucose (74-99) mg/dL POC Glucose (mg/dL) (70-110) mg/dL Calcium (8.4-10.2) mg/dL Albumin (3.5-5.0) g/dL 09/30/24 10/01/24 10/01/24 Range/Units 19:59 00:05 00:05 RBC 4.10 L (4.30-5.90) m/uL MCV 104.5 H (80.0-100.0) fL Plt Count 112 L (150-450) k/uL Neutrophils # (1.80-7.70) X 10*3/uL Macrocytosis (manual) (None Seen) PT 13.1 H (10.0-12.5) sec INR 1.2 H (<1.2) APTT (22.0-30.0) sec Chloride (98-107) mmol/L Carbon Dioxide (22-30) mmol/L Glucose (74-99) mg/dL POC Glucose (mg/dL) 159 H (70-110) mg/dL Calcium (8.4-10.2) mg/dL Albumin (3.5-5.0) g/dL 10/01/24 10/01/24 10/01/24 Range/Units 06:00 06:00 06:00 RBC 3.89 L (4.30-5.90) m/uL MCV 104.4 H (80.0-100.0) fL Plt Count 119 L (150-450) k/uL Neutrophils # (1.80-7.70) X 10*3/uL Macrocytosis (manual) (None Seen) PT (10.0-12.5) sec INR (<1.2) APTT 49.0 H (22.0-30.0) sec Chloride 95 L (98-107) mmol/L Carbon Dioxide 39 H (22-30) mmol/L Glucose 73 L (74-99) mg/dL POC Glucose (mg/dL) (70-110) mg/dL Calcium 8.3 L (8.4-10.2) mg/dL Albumin 3.1 L (3.5-5.0) g/dL
[2024-10-01 11:27] LABS: Glucose,Whole Blood 199 mg/dL (70-110)
[2024-10-01 14:23] VITALS: BMI 40.1
[2024-10-01] MEDS ORDERED: ATORVASTATIN 40 MG TAB PO SCH (21:00)
[2024-10-02] MEDS ORDERED: FUROSEMIDE 40 MG TAB PO SCH (09:00)
--- NOTE | 2024-10-03 12:34 | CDI ---
Documentation Clarification Form Date: 10/03/2024 12:18:40 PM From: Bibi Barron Admit Date: 09/29/2024 02:15:00 PM Patient Name: Darern Wheeler Visit Number: [id number] Discharge Date: 10/01/2024 02:57:00 PM ATTENTION: The Clinical Documentation Specialists (CDI) and [facility] Coding Staff appreciate your assistance in clarifying documentation. Please respond to the clarification below the line at the bottom and electronically sign. The CDI & [facility] Coding staff will review the response and follow-up if needed. Please note: Queries are made part of the Legal Health Record. If you have any questions, please contact the author of this message via ITS. Doctor/Provider: Dora Torres Your patient has the documented diagnosis of acute on chronic heart failure, unknown EF. Additional information regarding the type of CHF is requested. History/Risk Factors: patient is a 74 year old male with a history of DM type 2, HTN, hyperlipidemia, COPD, and GERD Clinical Indicators: presented with altered mental status, confusion, generalized weakness, and shortness of breath. Was being worked up for CHF. Pro BNP was found to be 864. Documentation and Echo states the patients EF is estimated at 40-45% VS/Pulse OX: T: 98.1, P 54, RR 18, BP 110/70, O2 97 room air and nasal cannula 2.5 BNP: 864 Echocardiogram Results: Left ventricular ejection fraction is estimated at 40- 45% Chest X Ray: cardiomegaly, pulmonary vascular congestion and bilateral pleural effusions Treatment: triple therapy with aspirin, Plavix, and eliquis, continue statins, and additional cardiac medications In your professional opinion, can you please clarify the type of CHF if known? [ ] Acute on Chronic Systolic Heart Failure (reduced EF) [ ] Other, please specify [ ] Unable to determine Acute on Chronic Systolic Heart Failure (reduced EF) [facility]
--- NOTE | 2024-10-06 05:44 | P.DS ---
Providers Date of admission: 09/29/24 14:15 Expected date of discharge: 10/01/24 Attending physician: Dora Torres Consults: 09/29/24 03:47 Consult Physician Urgent Consulting Provider: Kyle Damian Consult Reason/Comments: chf? pleural effusion, sob Do you want consulting provider notified?: Yes, Notify in am 09/30/24 17:35 Consult Physician Routine Consulting Provider: [facility] Consult Reason/Comments: Post Interventional Patient Do you want consulting provider notified?: Already Contacted Primary care physician: Physician Nonstaff Hospital Course: Final diagnosis Falls, mechanical with recurrent falls and generalized weakness Diabetes mellitus, type II uncontrolled with hypoglycemia Atrial fibrillation history questionable as patient is poor historian and not currently on anticoagulation Acute on chronic systolic congestive heart failure, EF 40 to 45% with cardiomyopathy Hypomagnesemia, being replaced Morbid obesity with a BMI of 40.9 Hyperlipidemia history Hypertension history Chronic pain history GERD History of COPD, not in exacerbation Acute on chronic hypoxic respiratory failure, likely secondary to congestive heart failure, EF is 40 to 45% GI prophylaxis DVT prophylaxis Full code Discharge disposition Patient is being discharged in a stable condition with guarded prognosis to home. Patient will follow-up with his primary care provider in [facility] in the outpatient setting upon discharge. Patient is to continue with current medications and recommend outpatient follow-up with cardiology as scheduled. Total time taken is greater than 35 minutes. Hospital course This is a 74-year-old male who was recently admitted with recurrent hypoglycemia and also multiple falls being closely monitored. Patient was recently hospitalized at [place] and unsure why and reports for this reason as well. Patient noted to have a reduced EF and evaluated by cardiology status post cardiac catheterization with stenting to the LAD. Patient also noted to have significant episodes of hypoglycemia with uncontrolled diabetes recommend holding diabetic agents and adjusting on discharge. Patient will need outpatient follow-up with endocrine as well as primary care provider and cardiology. Patient was evaluated by physical therapy and doing well recommending home with home care. Patient does chronically wear oxygen outpa tient and daughter is bringing oxygen tanks for pickup. Patient has been cleared by consultations. Please refer to consultation notes for further HPI. Currently no reports of chest pain, shortness of breath, or palpitations. Patient is afebrile. No reports of nausea or vomiting and patient is tolerating diet. Patient will be discharged home today. Guarded prognosis and high risk for readmissions given significant comorbidities. Physical exam: Gen: This is a 74-year-old male who is awake, alert and oriented x 2-3, well- developed, elderly appearing, obese HEENT: Head is atraumatic, normocephalic. Pupils equal, round. Sclerae is anicteric. NECK: Supple. No JVD. No lymphadenopathy. No thyromegaly. LUNGS: Clear to auscultation. No wheezes or rhonchi. No intercostal retractions. HEART: Regular rate and rhythm. No murmur. ABDOMEN: Soft. Bowel sounds are present. No masses. No tenderness. EXTREMITIES: No pedal edema. No calf tenderness. NEUROLOGICAL: Patient is awake, alert and oriented x3. Cranial nerves 2 through 12 are grossly intact. Please refer to medication reconciliation sheet for a list of medications. The impression and plan of care has been dictated by Martha Fitzpatrick, Nurse Practitioner as directed. Augustin MD I have performed a history and examination and MDM of this patient, discussed the same with the dictator, and agree with the dictator's assessment and plan as written ,documented as a scribe. Based on total visit time, I have performed more than 50% of the visit. Patient Condition at Discharge: Fair Plan - Discharge Summary Discharge Rx Participant: No New Discharge Prescriptions: New Furosemide [Lasix] 40 mg PO DAILY #30 tab Atorvastatin [Lipitor] 40 mg PO HS #30 tab Mag Hydrox/Al Hydrox/Simeth [Maalox] 30 ml PO Q4HR PRN ml PRN Reason: Heartburn Nitroglycerin Sl Tabs [Nitrostat] 0.4 mg SUBLINGUAL Q5M PRN #20 tab PRN Reason: Chest Pain Pantoprazole [Protonix] 40 mg PO AC-BRKFST #30 tab Acetaminophen Tab [Tylenol] 650 mg PO Q6HR PRN tab PRN Reason: Fever And/ Or Pain Aspirin 81 mg PO DAILY 7 Days #7 tab Apixaban [Eliquis] 5 mg PO BID #60 tab Gabapentin [Neurontin] 300 mg PO TID cap Clopidogrel [Plavix] 75 mg PO DAILY #30 tab Continue allopurinoL [Zyloprim] 300 mg PO DAILY metFORMIN HCL [Glucophage] 850 mg PO DAILY carvediloL [Coreg] 25 mg PO BID Zolpidem [Ambien] 10 mg PO HS Trelegy (Unknown Dose) 1 puff INHALATION RT-DAILY NIFEdipine XL [Procardia XL] 60 mg PO DAILY Pioglitazone [Actos] 30 mg PO DAILY Omeprazole [PriLOSEC] 10 mg PO DAILY Losartan [Cozaar] 50 mg PO DAILY Montelukast [Singulair] 10 mg PO DAILY DULoxetine HCL [Cymbalta] 60 mg PO DAILY PRN PRN Reason: Pain Cyclobenzaprine [Flexeril] 10 mg PO TID Changed glipiZIDE [Glucotrol] 5 mg PO BID 30 Days #30 tab Discontinued Atorvastatin [Lipitor] 10 mg PO DAILY Gabapentin 1,800 mg PO BID Discharge Medication List Cyclobenzaprine [Flexeril] 10 mg PO TID 09/27/24 [History] DULoxetine HCL [Cymbalta] 60 mg PO DAILY PRN 09/27/24 [History] Losartan [Cozaar] 50 mg PO DAILY 09/27/24 [History] Montelukast [Singulair] 10 mg PO DAILY 09/27/24 [History] NIFEdipine XL [Procardia XL] 60 mg PO DAILY 09/27/24 [History] Omeprazole [PriLOSEC] 10 mg PO DAILY 09/27/24 [History] Pioglitazone [Actos] 30 mg PO DAILY 09/27/24 [History] Trelegy (Unknown Dose) 1 puff INHALATION RT-DAILY 09/27/24 [History] Zolpidem [Ambien] 10 mg PO HS 09/27/24 [History] allopurinoL [Zyloprim] 300 mg PO DAILY 09/27/24 [History] carvediloL [Coreg] 25 mg PO BID 09/27/24 [History] metFORMIN HCL [Glucophage] 850 mg PO DAILY 09/27/24 [History] Acetaminophen Tab [Tylenol] 650 mg PO Q6HR PRN tab 10/01/24 [Rx] Apixaban [Eliquis] 5 mg PO BID #60 tab 10/01/24 [Rx] Aspirin 81 mg PO DAILY 7 Days #7 tab 10/01/24 [Rx] Atorvastatin [Lipitor] 40 mg PO HS #30 tab 10/01/24 [Rx] Clopidogrel [Plavix] 75 mg PO DAILY #30 tab 10/01/24 [Rx] Furosemide [Lasix] 40 mg PO DAILY #30 tab 01/22/25 [Rx] Gabapentin [Neurontin] 300 mg PO TID cap 10/01/24 [Rx] Mag Hydrox/Al Hydrox/Simeth [Maalox] 30 ml PO Q4HR PRN ml 10/01/24 [Rx] Nitroglycerin Sl Tabs [Nitrostat] 0.4 mg SUBLINGUAL Q5M PRN #20 tab 10/01/24 [Rx] Pantoprazole [Protonix] 40 mg PO AC-BRKFST #30 tab 10/01/24 [Rx] glipiZIDE [Glucotrol] 5 mg PO BID 30 Days #30 tab 10/01/24 [Rx] Follow up Appointment(s)/Referral(s): Nico iDaz DO [STAFF PHYSICIAN] - 10/13/24 8:45 am [facility], [NON-STAFF] - Nonstaff,Physician [Primary Care Provider] - 1 Week (Please call to schedule follow up. ) Patient Instructions/Handouts: A-fib (Atrial Fibrillation) (DC), Safe Use of Anticoagulants (DC), After Radial Heart Catheterization (GEN) Activity/Diet/Wound Care/Special Instructions: Activity limited until follow-up Follow-up with primary care provider on discharge Follow-up with cardiology outpatient Continue taking triple therapy including aspirin daily for 1 week then discontinue, Plavix daily to continue, Eliquis twice daily to continue Continue monitoring blood sugars closely and keep a diary of all readings Follow-up with primary care provider this week as well as cardiology Discharge Disposition: HOME WITH HOME HEALTH SERVICES
== END 2024-10-01 14:57 | disposition home health service (06) | DRG 981 ==
LOC: EC 19:00 → 4SSUR 21:19 → OBSVTOIN 09-29 14:15 → 3SCARD 09-30 15:46
PROVIDERS: ADMIT Hospitalist; ATTEND Hospitalist
PROC: B2111ZZ Fluoroscopy of Multiple Coronary Arteries using Low Osmolar Contrast (ICD-10-PCS; principal; 2024-09-30 17:50)
PROC: B240ZZ3 Ultrasonography of Single Coronary Artery, Intravascular (ICD-10-PCS; principal; 2024-09-30 17:50)
PROC: 4A023N7 Measurement of Cardiac Sampling and Pressure, Left Heart, Percutaneous Approach (ICD-10-PCS; principal; 2024-09-30 17:50)
PROC: 027035Z Dilation of Coronary Artery, One Artery with Two Drug-eluting Intraluminal Devices, Percutaneous Approach (ICD-10-PCS; principal; 2024-09-30 17:50)
PROC: 02F03ZZ Fragmentation in Coronary Artery, One Artery, Percutaneous Approach (ICD-10-PCS; principal; 2024-09-30 17:50)
DX: E11.649 Type 2 diabetes mellitus with hypoglycemia without coma (principal); G93.41 Metabolic encephalopathy; J96.21 Acute and chronic respiratory failure with hypoxia; I50.23 Acute on chronic systolic (congestive) heart failure; I42.9 Cardiomyopathy, unspecified; D61.818 Other pancytopenia; Z68.41 Body mass index [BMI] 40.0-44.9, adult; J44.9 Chronic obstructive pulmonary disease, unspecified; E11.40 Type 2 diabetes mellitus with diabetic neuropathy, unspecified; I11.0 Hypertensive heart disease with heart failure; E66.01 Morbid (severe) obesity due to excess calories; R00.1 Bradycardia, unspecified; I25.10 Atherosclerotic heart disease of native coronary artery without angina pectoris; E78.5 Hyperlipidemia, unspecified; M10.9 Gout, unspecified; G89.29 Other chronic pain; I48.0 Paroxysmal atrial fibrillation; K21.9 Gastro-esophageal reflux disease without esophagitis; R29.6 Repeated falls; E83.42 Hypomagnesemia; Z99.81 Dependence on supplemental oxygen; Z87.891 Personal history of nicotine dependence; Z79.899 Other long term (current) drug therapy; Z79.84 Long term (current) use of oral hypoglycemic drugs; Z91.81 History of falling; Z88.0 Allergy status to penicillin; Z79.51 Long term (current) use of inhaled steroids; Z87.01 Personal history of pneumonia (recurrent)
CPT/HCPCS: 36415; 71045; 72170; 80048; 80053; 80306; 80320; 81003; 82140; 83036; 83605; 83735; 83880; 84100; 84439; 84443; 84481; 84484; 85025; 85610; 85730; 87636; 92972; 92978; 93005; 93306; 93458; 94640; 96361; 96374; 99285

== ENCOUNTER 2025-01-05 11:13 | Observation (INO) | payer MEDICARE, BC ==
--- NOTE | 2025-01-05 11:47 | ED ---
Chest Pain HPI - General Chief Complaint: Chest Pain Stated Complaint: cardiac issues, not feeling well Time Seen by Provider: 01/05/25 11:23 Source: patient, EMS, RN notes reviewed Mode of arrival: EMS Limitations: no limitations - History of Present Illness Initial Comments: 74-year-old male presents emergency department with chief complaint of palpita tions, chest comfort. Patient states this started this morning. He felt like his heart was racing up and down states heart rate went from 30-100. Patient states that he does have a history of A-fib on anticoagulation. Patient states he had some tunnel vision did not feel that he was in a pass out. That has resolved. Patient states he had cardiac stents few months ago. Patient states he has some chest discomfort does not feel well. Patient states he did have some shortness of breath. - Related Data Home Medications Medication Instructions Recorded Confirmed Cyclobenzaprine [Flexeril] 10 mg PO TID 09/27/24 09/27/24 DULoxetine HCL [Cymbalta] 60 mg PO DAILY PRN 09/27/24 09/27/24 Losartan [Cozaar] 50 mg PO DAILY 09/27/24 09/29/24 Montelukast [Singulair] 10 mg PO DAILY 09/27/24 09/27/24 NIFEdipine XL [Procardia XL] 60 mg PO DAILY 09/27/24 09/29/24 Omeprazole [PriLOSEC] 10 mg PO DAILY 09/27/24 09/29/24 Pioglitazone [Actos] 30 mg PO DAILY 09/27/24 09/29/24 Trelegy (Unknown Dose) 1 puff INHALATION RT-DAILY 09/27/24 09/27/24 Zolpidem [Ambien] 10 mg PO HS 09/27/24 09/27/24 allopurinoL [Zyloprim] 300 mg PO DAILY 09/27/24 09/29/24 carvediloL [Coreg] 25 mg PO BID 09/27/24 09/29/24 metFORMIN HCL [Glucophage] 850 mg PO DAILY 09/27/24 09/29/24 Previous Rx's Medication Instructions Recorded Acetaminophen Tab [Tylenol] 650 mg PO Q6HR PRN tab 10/01/24 Apixaban [Eliquis] 5 mg PO BID #60 tab 10/01/24 Aspirin 81 mg PO DAILY 7 Days #7 tab 10/01/24 Atorvastatin [Lipitor] 40 mg PO HS #30 tab 10/01/24 Clopidogrel [Plavix] 75 mg PO DAILY #30 tab 10/01/24 Furosemide [Lasix] 40 mg PO DAILY #30 tab 10/01/24 Gabapentin [Neurontin] 300 mg PO TID cap 10/01/24 Mag Hydrox/Al Hydrox/Simeth 30 ml PO Q4HR PRN ml 10/01/24 [Maalox] Nitroglycerin Sl Tabs [Nitrostat] 0.4 mg SUBLINGUAL Q5M PRN #20 tab 10/01/24 Pantoprazole [Protonix] 40 mg PO AC-BRKFST #30 tab 10/01/24 glipiZIDE [Glucotrol] 5 mg PO BID 30 Days #30 tab 10/01/24 Allergies Allergy/AdvReac Type Severity Reaction Status Date / Time Penicillins Allergy Thrush Verified 01/05/25 11:22 Review of Systems ROS Statement: Those systems with pertinent positive or pertinent negative responses have been documented in the HPI. ROS Other: All systems not noted in ROS Statement are negative. EKG Findings - EKG Comments: EKG Findings:: EKG performed at 11: 24 sinus rhythm with a rate of 67 IN 190 QRS 100 QT/QTc/446 sinus rhythm with multiple PVCs. - EKG Results: EKG: interpreted by NASIM Past Medical History Past Medical History: Atrial Fibrillation, COPD, Diabetes Mellitus, GERD/Reflux, Hyperlipidemia, Hypertension, Pneumonia Additional Past Medical History / Comment(s): gout, neuropathy, chronic pain, Bush's Palsy History of Any Multi-Drug Resistant Organisms: None Reported Past Surgical History: Heart Catheterization With Stent, Hernia Repair Additional Past Surgical History / Comment(s): cervical fusion, umbilical hernia repair. Past Anesthesia/Blood Transfusion Reactions: No Reported Reaction Past Psychological History: No Psychological Hx Reported Smoking Status: Former smoker Past Alcohol Use History: None Reported Past Drug Use History: None Reported General Exam Limitations: no limitations General appearance: alert, in no apparent distress Head exam: Present: atraumatic, normocephalic, normal inspection Eye exam: Present: normal appearance, PERRL, EOMI. Absent: scleral icterus, conjunctival injection, periorbital swelling ENT exam: Present: normal exam, mucous membranes moist Neck exam: Present: normal inspection, full ROM. Absent: tenderness, meningismus, lymphadenopathy Respiratory exam: Present: normal lung sounds bilaterally. Absent: respiratory distress, wheezes, rales, rhonchi, stridor Cardiovascular Exam: Present: regular rate, normal rhythm, normal heart sounds. Absent: systolic murmur, diastolic murmur, rubs, gallop, clicks Back exam: Present: full ROM. Absent: tenderness Neurological exam: Present: alert, oriented X3, CN II-XII intact, reflexes normal. Absent: motor sensory deficit Course Vital Signs 01/05/25 01/05/25 11:16 12:22 Temperature 98.6 F Pulse Rate 67 65 Respiratory 20 20 Rate Blood Pressure 115/61 117/68 O2 Sat by Pulse 95 97 Oximetry Chest Pain MDM - MDM Was pt. sent in by a medical professional or institution (, PA, AUTOMATION MANAGER, urgent care, hospital, or prison...) When possible be specific @ -No Did you speak to anyone other than the patient for history (EMS, parent, family, police, friend...)? What history was obtained from this source @ -No Did you review nursing and triage notes (agree or disagree)? Why? @ -I reviewed and agree with nursing and triage notes Were old charts reviewed (outside hosp., previous admission, EMS record, old EKG, old radiological studies, urgent care reports/EKG's, prison records)? Report findings @ -No old charts were reviewed Differential Diagnosis (chest pain, altered mental status, abdominal pain women, abdominal pain men, vaginal bleeding, weakness, fever, dyspnea, syncope, headache, dizziness, GI bleed, back pain, seizure, CVA, palpatations, mental health, musculoskeletal)? @ -Differential Chest Pain: Stable Angina, Unstable Angina, STEMI, NSTEMI Aortic Dissection, Pneumothorax, Musculoskeletal, Esophageal Spasm GERD, Cholecystitis, Pancreatitis, Zoster, this is not meant to be an all-inclusive list. EKG interpreted by me (3pts min.). @ -As above X-rays interpreted by me (1pt min.). @ -Chest x-ray shows stable findings from prior patchy atelectasis, resolving infiltrate CT interpreted by me (1pt min.). @ -None done U/S interpreted by me (1pt. min.). @ -None done What testing was considered but not performed or refused? (CT, X-rays, U/S, labs)? Why? @ -None What meds were considered but not given or refused? Why? @ -None Did you discuss the management of the patient with other professionals (professionals i.e. , PA, AUTOMATION MANAGER, lab, RT, psych nurse, social media coordinator, airplane designer, teacher, forest fire management officer, insurance case manager)? Give summary @ -dr sheet for admission Was smoking cessation discussed for >3mins.? @ -No Was critical care preformed (if so, how long)? @ -No Were there social determinants of health that impacted care today? How? (Homelessness, low income, unemployed, alcoholism, drug addiction, transportation, low edu. Level, literacy, decrease access to med. care, residential, rehab)? @ -No Was there de-escalation of care discussed even if they declined (Discuss DNR or withdrawal of care, Hospice)? DNR status @ -No What co-morbidities impacted this encounter? (DM, HTN, Smoking, COPD, CAD, Cancer, CVA, ARF, Chemo, Hep., AIDS, mental health diagnosis, sleep apnea, morbid obesity)? @ -CAD Was patient admitted / discharged? Hospital course, mention meds given and route, prescriptions, significant lab abnormalities, going to OR and other pertinent info. @ -Admitted patient had recent stent placement, plaints chest pain palpitations today patient phone is negative. Patient be admitted for admission and cardiac rule out Undiagnosed new problem with uncertain prognosis? @ -No Drug Therapy requiring intensive monitoring for toxicity (Heparin, Nitro, Insulin, Cardizem)? @ -No Were any procedures done? @ -No Diagnosis/symptom? @ -Palpitations, chest pain Acute, or Chronic, or Acute on Chronic? @ -Acute Uncomplicated (without systemic symptoms) or Complicated (systemic symptoms)? @ -Complicated Side effects of treatment? @ -No Exacerbation, Progression, or Severe Exacerbation? @ -No Poses a threat to life or bodily function? How? (Chest pain, [place], [place], pneumonia, PE, COPD, DKA, ARF, appy, cholecystitis, CVA, Diverticulitis, Homicidal, Suicidal, threat to staff... and all critical care pts) @ACS, risk to cardiac function Disposition Clinical Impression: Chest pain, Palpitations Disposition: ADMITTED IP TO THIS HOSP Condition: Fair Referrals: Nonstaff,Physician [Primary Care Provider] - 1-2 days Time of Disposition: 13:35
[2025-01-05 11:48] LABS: Basophils # (A) 0.02 10*3/uL (0.00-0.10); Basophils % (A) 0.4 %; Eosinophils # (A) 0.09 10*3/uL (0.04-0.35); Eosinophils % (A) 1.7 %; HGB 12.8 g/dL (13.0-17.0); Lymphocytes # (A) 1.54 10*3/uL (0.90-5.00); Lymphocytes % (A) 28.6 %; MCH 34.4 pg (27.0-32.0); MCHC 33.7 g/dL (32.0-37.0); MCV 102.2 fL (80.0-97.0); Mean Platelet Volume 10.2 fL (9.5-12.2); Monocytes # (A) 0.62 10*3/uL (0.20-1.00); Monocytes % (A) 11.5 %; Neutrophils # (A) 3.09 10*3/uL (1.80-7.70); Neutrophils % (A) 57.4 %; Platelet Count 141 10*3/uL (140-440); RBC 3.72 10*6/uL (4.40-5.60); RDW 15.8 % (11.5-14.5); WBC 5.38 10*3/uL (4.50-10.00)
[2025-01-05 12:04] LABS: ALT 34 U/L (4-49); AST 39 U/L (17-59); African American GFR (CKD) 78 (>60 ml/min/1.73 sqM); Albumin 3.7 g/dL (3.5-5.0); Alkaline Phosphatase 125 U/L (38-126); Anion Gap 9 mmol/L; Blood Urea Nitrogen 19 mg/dL (9-20); Calcium 9.1 mg/dL (8.4-10.2); Carbon Dioxide 28 mmol/L (22-30); Chloride 105 mmol/L (98-107); Glucose 161 mg/dL (74-99); INR 1.2 (<1.2); Magnesium 1.5 mg/dL (1.6-2.3); Non-African American GFR(CKD) 68 (>60 ml/min/1.73 sqM); Partial Thromboplastin Time 23.7 sec (22.0-30.0); Potassium 3.7 mmol/L (3.5-5.1); Prothrombin Time 12.6 sec (10.0-12.5); Sodium 142 mmol/L (137-145); Total Bilirubin 0.8 mg/dL (0.2-1.3); Total Protein 7.4 g/dL (6.3-8.2)
[2025-01-05 12:11] LABS: NT-Pro-B-Type Natriuretic Pept 1040 pg/mL
--- NOTE | 2025-01-05 12:49 | XR ---
EXAMINATION TYPE: XR chest 2V DATE OF EXAM: 01/05/2025 11:58 AM COMPARISON: 09/27/2024 CLINICAL INDICATION: Male, 74 years old with history of Chest Pain, , TECHNIQUE: PA and lateral views FINDINGS: Right heart margin obscured by adjacent pleural parenchymal opacity. Interstitial opacities persist b ut show slight improvement. Prominent right middle lower lung opacity persists. Patchy changes at the left base also persist. ACDF hardware. IMPRESSION: 1. Ongoing extensive opacity right mid and lower lung, suspected pleural effusion with underlying ate lectasis and/or consolidation. 2. Interstitial changes persist but are improving, likely residual interstitial pulmonary edema. 3. Patchy opacities remain at the left base. [facility], , 01/05/2025 12:46 PM
[2025-01-05] MEDS ORDERED: NITROGLYCERIN SL TABS 0.4 MG TAB SUBLINGUAL PRN (13:35)
[2025-01-05] MEDS: MAGNESIUM OXIDE 400 MG TAB PO STA (14:15)
--- NOTE | 2025-01-05 14:23 | P.HPIM ---
History of Present Illness Patient is a pleasant 74 years old male with past medical history of multiple medical problems as below Presents because of feeling the heartbeat of his left chest, and get fast at times and fluctuates, he has history of A-fib so he got concerned and came to the emergency room However when asking specifically he denies chest pain he denies discomfort in his chest or upper abdomen He had diarrhea yesterday but stopped he has regular bowel movement today other than that he has no GI/ symptom. No coughing or phlegm. No headache dizziness weakness numbness He denies smoking alcohol or illicit drugs Also is complaining from exertional dyspnea he has to sit down if he walk for some distance inside his house. He is hemodynamically stable and afebrile. Hemoglobin 12.8 and other labs including CBC, BMP and LFT were unremarkable. INR and troponin were negative Magnesium 1.5 Chest x-ray showing left pleural effusion and consolidation versus atelectasis with left basilar opacity EKG showing sinus rhythm at [address]-T changes but there are PVCs Review of Systems Review of systems CONSTITUTIONAL: No fever, no malaise, no fatigue. HEENT: No recent visual problems or hearing problems. Denied any sore throat. CARDIOVASCULAR: No orthopnea, PND, no palpitations, no syncope. PULMONARY: No s chest wall tenderness, no hemoptysis. GASTROINTESTINAL: No diarrhea, no nausea, no vomiting, no abdominal pain. Normoactive bowel sounds. NEUROLOGICAL: No headaches, no weakness, no numbness. HEMATOLOGICAL: Denies any bleeding or petechiae. GENITOURINARY: Denies any burning micturition, frequency, or urgency. MUSCULOSKELETAL/RHEUMATOLOGICAL: Denies any joint pain, swelling, or any muscle pain. ENDOCRINE: Denies any polyuria or polydipsia. Past Medical History Past Medical History: Atrial Fibrillation, COPD, Diabetes Mellitus, GERD/Reflux, Hyperlipidemia, Hypertension, Pneumonia Additional Past Medical History / Comment(s): gout, neuropathy, chronic pain, Bush's Palsy History of Any Multi-Drug Resistant Organisms: None Reported Past Surgical History: Heart Catheterization With Stent, Hernia Repair Additional Past Surgical History / Comment(s): cervical fusion, umbilical hernia repair. Past Anesthesia/Blood Transfusion Reactions: No Reported Reaction Past Psychological History: No Psychological Hx Reported Smoking Status: Former smoker Past Alcohol Use History: None Reported Past Drug Use History: None Reported Medications and Allergies Home Medications Medication Instructions Recorded Confirmed Type Cyclobenzaprine [Flexeril] 10 mg PO TID 09/27/24 09/27/24 History DULoxetine HCL [Cymbalta] 60 mg PO DAILY PRN 09/27/24 09/27/24 History Losartan [Cozaar] 50 mg PO DAILY 09/27/24 09/29/24 History Montelukast [Singulair] 10 mg PO DAILY 09/27/24 09/27/24 History NIFEdipine XL [Procardia XL] 60 mg PO DAILY 09/27/24 09/29/24 History Omeprazole [PriLOSEC] 10 mg PO DAILY 09/27/24 09/29/24 History Pioglitazone [Actos] 30 mg PO DAILY 09/27/24 09/29/24 History Trelegy (Unknown Dose) 1 puff INHALATION RT-DAILY 09/27/24 09/27/24 History Zolpidem [Ambien] 10 mg PO HS 09/27/24 09/27/24 History allopurinoL [Zyloprim] 300 mg PO DAILY 09/27/24 09/29/24 History carvediloL [Coreg] 25 mg PO BID 09/27/24 09/29/24 History metFORMIN HCL [Glucophage] 850 mg PO DAILY 09/27/24 09/29/24 History Acetaminophen Tab [Tylenol] 650 mg PO Q6HR PRN tab 10/01/24 Rx Apixaban [Eliquis] 5 mg PO BID #60 tab 10/01/24 Rx Aspirin 81 mg PO DAILY 7 Days #7 tab 10/01/24 Rx Atorvastatin [Lipitor] 40 mg PO HS #30 tab 10/01/24 Rx Clopidogrel [Plavix] 75 mg PO DAILY #30 tab 10/01/24 Rx Furosemide [Lasix] 40 mg PO DAILY #30 tab 10/01/24 Rx Gabapentin [Neurontin] 300 mg PO TID cap 10/01/24 Rx Mag Hydrox/Al Hydrox/Simeth 30 ml PO Q4HR PRN ml 10/01/24 Rx [Maalox] Nitroglycerin Sl Tabs [Nitrostat] 0.4 mg SUBLINGUAL Q5M PRN #20 tab 10/01/24 Rx Pantoprazole [Protonix] 40 mg PO AC-BRKFST #30 tab 10/01/24 Rx glipiZIDE [Glucotrol] 5 mg PO BID 30 Days #30 tab 10/01/24 Rx Allergies Allergy/AdvReac Type Severity Reaction Status Date / Time Penicillins Allergy Thrush Verified 01/05/25 11:22 Physical Exam Vitals: Vital Signs Temp Pulse Resp BP Pulse Ox 01/05/25 14:14 72 20 116/91 94 L 01/05/25 12:22 65 20 117/68 97 01/05/25 11:16 98.6 F 67 20 115/61 95 Intake and Output 01/04/25 01/05/25 01/05/25 22:59 06:59 14:59 Other: Weight 122.924 kg -GENERAL: The patient is alert and oriented x3, not in any acute distress. Well developed, well nourished. Morbidly obese HEENT: Pupils are round and equally reacting to light. EOMI. No scleral icterus. No conjunctival pallor. Normocephalic, atraumatic. No pharyngeal erythema. No thyromegaly. CARDIOVASCULAR: S1 and S2 present. No murmurs, rubs, or gallops. -PULMONARY: Chest is clear to auscultation, no wheezing , no crackles. Mildly tachypnea with decreased breath sounds in the bases ABDOMEN: Soft, nontender, nondistended, normoactive bowel sounds. No palpable organomegaly. MUSCULOSKELETAL: No joint swelling or deformity. EXTREMITIES: No cyanosis, clubbing, or pedal edema. NEUROLOGICAL: Gross neurological examination did not reveal any focal deficits. SKIN: No rashes. no petechiae. Results CBC & Chem 7: 01/05/25 11:27 01/05/25 11:27 Labs: Abnormal Lab Results - Last 24 Hours (Table) 01/05/25 01/05/25 01/05/25 Range/Units 11:27 11:27 11:27 RBC 3.72 L (4.40-5.60) 10*6/uL Hgb 12.8 L (13.0-17.0) g/dL Hct 38.0 L (39.6-50.0) % MCV 102.2 H (80.0-97.0) fL MCH 34.4 H (27.0-32.0) pg PT 12.6 H (10.0-12.5) sec INR 1.2 H (<1.2) Glucose 161 H (74-99) mg/dL Magnesium 1.5 L (1.6-2.3) mg/dL Assessment and Plan Assessment: Left pleural effusion Bilateral atelectasis versus pneumonia Chronic hypoxic respiratory failure Paroxysmal atrial fibrillation Diabetes Hypertension Hyperlipidemia History of GERD COPD with no obvious acute exacerbation Gout Neuropathy Plan: Continue with aspirin Cardiology consult Check pro- Calcitonin Resume home medication Further recommendation based on the clinical course GI prophylaxis: Pepcid DVT prophylaxis subcu heparin Prognosis is guarded
[2025-01-05] MEDS: CYCLOBENZAPRINE 10 MG TAB PO STA (18:34)
[2025-01-05] MEDS ORDERED: ACETAMINOPHEN TAB 325 MG TAB PO PRN (19:50)
[2025-01-05] MEDS: FAMOTIDINE 20 MG/2 ML VIAL IV SCH (20:56)
[2025-01-05] MEDS: DULoxetine HCL 60 MG CAPSULE.DR PO SCH (20:56)
[2025-01-05] MEDS: ZOLPIDEM 5 MG TAB PO SCH (20:56)
[2025-01-05] MEDS: ATORVASTATIN 40 MG TAB PO SCH (20:56)
[2025-01-05] MEDS: APIXABAN 5 MG TAB PO SCH (20:56)
[2025-01-05] MEDS ORDERED: HEPARIN SODIUM,PORCINE 5,000 UNIT/ML 1 ML VIAL SQ SCH (21:00)
[2025-01-05] MEDS: carvediloL 12.5 MG TAB PO SCH (22:31)
[2025-01-05] MEDS: GABAPENTIN 400 MG CAP PO SCH (22:31)
[2025-01-06] MEDS ORDERED: DEXTROSE 50% SYRINGE 50 ML IVP PRN ×2 (01:39)
[2025-01-06] MEDS: MAGNESIUM SULFATE-D5W PMX 1 GM in DEXTROSE/WATER 1 100ML.BAG IVPB SCH (02:24)
[2025-01-06 06:00] LABS: Glucose,Whole Blood 81 mg/dL (70-110)
[2025-01-06] MEDS: INSULIN LISPRO (HumaLOG) 100 UNIT/ML 10 mL VL SQ SCH (06:05)
[2025-01-06] MEDS: PANTOPRAZOLE 40 MG TABLET PO SCH (06:22)
[2025-01-06 09:11] VITALS: BP 115/62; PULSE 58; RESP 16; TEMP 97.6
--- NOTE | 2025-01-06 10:25 | P.CRDCN ---
History of Present Illness Consult date: 01/06/25 Consult reason: chest pain History of present illness: This is a 74-year-old male patient of Dr. Diaz with past medical history of diabetes mellitus type 2, hypertension, hyperlipidemia, COPD, GERD, CHF, coronary artery disease status post PCI of the LAD in September 2024, paroxysmal atrial fibrillation, chronic hypoxic respiratory failure on home O2 at 3 L nasal cannula. Patient had a hospitalization in September of this year at which time he presented with altered mental status and shortness of breath. Echocardiogram at that time showed an EF of 40 to 45%, inferior hypokinesia, RVSP 36, aortic root 4.1 cm. He underwent a left heart catheterization on 09/27/2024 which showed coronary artery disease involving the mid LAD 90% stenosis, LVEDP 13, status post PCI of the mid LAD with overlapping stents. He also developed new onset of atrial fibrillation during the procedure. Patient was discharged home on Plavix and also Eliquis. Visit in the office with Dr. Diaz on 11/24 and patient was has some shortness of breath but no chest pain. It was thought to be related to atrial fibrillation and a monitor for 7 days was done to evaluate A-fib burden. We have been asked to evaluate the patient for chest pain. Patient presented due to "heart beating irradically". He checked his HR at home was going from 30- 90. His symptoms lasted for about one hour and went away on its own. He stated that EMS told him it was not abnormal. No lightheadedness or dizziness. He denies recent medication changes. He currently feels back to normal. During event monitor, patient states he did not feel any palpitations during the course. Blood pressure 115/62, heart rate 58, pulse ox 100% on 3 L nasal cannula. Patient is status post magnesium replacement. He has been resumed on his home cardiac medications. -EKG: Sinus rhythm with nonspecific ST changes. -Chest x-ray: Ongoing extensive opacity right mid and lower lung suspected pleur al effusion with underlying atelectasis and/or consolidation. Interstitial changes persist but are improving. Likely residual interstitial pulmonary edema. Patchy opacities remain at the left base. -Laboratory studies: WBC 5.3, hemoglobin 12.8, INR 1.2. Creatinine 1.09, BUN 19, troponin negative x 3. Magnesium 1.5. proBNP 1040. Procalcitonin less than 0.2. -Home cardiac medications: Eliquis 5 mg twice daily, Lipitor 40 mg at bedtime, Coreg 25 mg twice daily, Plavix 75 mg daily, Lasix 40 mg daily, losartan 50 mg daily, Nitrostat as needed. Review Of Systems: At the time of my exam: CONSTITUTIONAL: Denies fever or chills. HEENT: Denies blurred vision, vision changes, or eye pain. Denies hemoptysis CARDIOVASCULAR: Denies chest pain. Denies orthopnea. Denies PND. Denies palpitations RESPIRATORY: Denies shortness of breath. GASTROINTESTINAL: Denies abdominal pain. Denies nausea or vomiting. HEMATOLOGIC: Denies bleeding disorders. GENITOURINARY: Denies any blood in urine. SKIN: Denies puritis. Denies rash. Physical examination: Gen: This is 74-year-old male in no acute respiratory distress. Borsody 81 VS: reviewed HEENT: Head is atraumatic, normocephalic. Pupils equal, round. Sclerae is anicteric. NECK: Supple. No JVD. LUNGS: Clear to auscultation. No wheezes or rhonchi. No intercostal retractions. HEART: Irregular rate and rhythm. No murmur. ABDOMEN: Soft No tenderness. EXTREMITIES: No pedal edema. No calf tenderness. NEUROLOGICAL: Patient is awake, alert and oriented x3. Assessment: Palpitations most likely due to atrial fibrillation Frequent PVCs on telemetry Paroxysmal atrial fibrillation History of coronary artery disease with stent to the LAD in September 2024 Diabetes mellitus type 2 Hypertension Hyperlipidemia COPD Chronic hypoxic respiratory failure on home O2 GERD Chronic systolic heart failure Ischemic cardiomyopathy with EF of 40 to 45% Plan: Resume patient's home cardiac medications No medication changes No need to repeat echocardiogram as this was done in September Patient is cleared for discharge from Cardiology and will follow up with Dr. Diaz in 1-2 weeks May consider more aggressive antiarrhythmics if patient continues to be sy mptomatic Thank you kindly for this consultation. Nurse practitioner note has been reviewed, I agree with documented findings and plan of care. Patient was seen and examined. Past Medical History Past Medical History: Atrial Fibrillation, COPD, Diabetes Mellitus, GERD/Reflux, Hyperlipidemia, Hypertension, Pneumonia Additional Past Medical History / Comment(s): gout, neuropathy, chronic pain, Bush's Palsy History of Any Multi-Drug Resistant Organisms: None Reported Past Surgical History: Heart Catheterization With Stent, Hernia Repair, Orthopedic Surgery Additional Past Surgical History / Comment(s): cervical fusion, umbilical hernia repair, right rotator cuff repair Past Anesthesia/Blood Transfusion Reactions: No Reported Reaction Date of Last Stent Placement:: 09-30-24 Past Psychological History: No Psychological Hx Reported Smoking Status: Former smoker Past Alcohol Use History: None Reported Past Drug Use History: None Reported - Past Family History Mother Family Medical History: CVA/TIA Additional Family Medical History / Comment(s): from stroke at age 54. Father History Unknown: Yes Brother(s) Family Medical History: Hypertension Medications and Allergies Home Medications Medication Instructions Recorded Confirmed Type DULoxetine HCL [Cymbalta] 60 mg PO BID 09/27/24 01/05/25 History Losartan [Cozaar] 50 mg PO DAILY 09/27/24 01/05/25 History Montelukast [Singulair] 10 mg PO DAILY 09/27/24 01/05/25 History Pioglitazone [Actos] 30 mg PO DAILY 09/27/24 01/05/25 History Zolpidem [Ambien] 10 mg PO HS 09/27/24 01/05/25 History allopurinoL [Zyloprim] 300 mg PO DAILY 09/27/24 01/05/25 History carvediloL [Coreg] 25 mg PO BID 09/27/24 01/05/25 History metFORMIN HCL [Glucophage] 850 mg PO DAILY 09/27/24 01/05/25 History Acetaminophen Tab [Tylenol] 650 mg PO Q6HR PRN tab 10/01/24 01/05/25 Rx Apixaban [Eliquis] 5 mg PO BID #60 tab 10/01/24 01/05/25 Rx Atorvastatin [Lipitor] 40 mg PO HS #30 tab 10/01/24 01/05/25 Rx Clopidogrel [Plavix] 75 mg PO DAILY #30 tab 10/01/24 01/05/25 Rx Furosemide [Lasix] 40 mg PO DAILY #30 tab 10/01/24 01/05/25 Rx Pantoprazole [Protonix] 40 mg PO AC-BRKFST #30 tab 10/01/24 01/05/25 Rx Ergocalciferol [Vitamin D2 (1250 1,250 mcg PO Q7D 01/05/25 01/05/25 History Mcg = 94410 Iu)] Fluticasone/Umeclidin/Vilanter 1 puff INHALATION RT-DAILY 01/05/25 01/05/25 History [Trelegy Ellipta 200-62.5-25] Gabapentin 1,200 mg PO TID 01/05/25 01/05/25 History Mupirocin Calcium 2% Cream 1 applic TOPICAL BID 01/05/25 01/05/25 History [Bactroban 2% Cream] Nitroglycerin Sl Tabs [Nitrostat] 0.4 mg SL Q5M PRN 01/05/25 01/05/25 History glipiZIDE [Glucotrol] 5 mg PO BID 01/05/25 01/05/25 History Allergies Allergy/AdvReac Type Severity Reaction Status Date / Time Penicillins AdvReac Thrush Verified 01/05/25 14:51 Physical Exam Vitals: Vital Signs Temp Pulse Pulse Resp BP BP Pulse Ox 01/06/25 01:18 98.7 F 93 19 126/62 92 L 01/05/25 22:08 98.4 F 80 18 142/96 96 01/05/25 21:25 81 18 140/81 98 01/05/25 18:36 82 20 120/94 92 L 01/05/25 17:00 68 20 141/87 96 01/05/25 15:56 67 20 87/53 98 01/05/25 14:14 72 20 116/91 94 L 01/05/25 12:22 65 20 117/68 97 01/05/25 11:16 98.6 F 67 20 115/61 95 Intake and Output 01/05/25 01/06/25 01/06/25 22:59 06:59 14:59 Other: Voiding Method Toilet Toilet # Voids 1 Weight 122.924 kg Results 01/05/25 11:27 01/05/25 11:27 Cardiac Enzymes 01/05/25 01/05/25 01/05/25 Range/Units 11:27 11:27 14:32 AST 39 (17-59) U/L Troponin I 0.014 <0.012 (0.000-0.034) ng/mL 01/05/25 Range/Units 17:42 AST (17-59) U/L Troponin I <0.012 (0.000-0.034) ng/mL Coagulation 01/05/25 Range/Units 11:27 PT 12.6 H (10.0-12.5) sec APTT 23.7 (22.0-30.0) sec CBC 01/05/25 Range/Units 11:27 WBC 5.38 (4.50-10.00) 10*3/uL RBC 3.72 L (4.40-5.60) 10*6/uL Hgb 12.8 L (13.0-17.0) g/dL Hct 38.0 L (39.6-50.0) % Plt Count 141 (140-440) 10*3/uL Comprehensive Metabolic Panel 01/05/25 Range/Units 11:27 Sodium 142 (137-145) mmol/L Potassium 3.7 (3.5-5.1) mmol/L Chloride 105 (98-107) mmol/L Carbon Dioxide 28 (22-30) mmol/L BUN 19 (9-20) mg/dL Creatinine 1.09 (0.66-1.25) mg/dL Glucose 161 H (74-99) mg/dL Calcium 9.1 (8.4-10.2) mg/dL AST 39 (17-59) U/L ALT 34 (4-49) U/L Alkaline Phosphatase 125 (38-126) U/L Total Protein 7.4 (6.3-8.2) g/dL Albumin 3.7 (3.5-5.0) g/dL Current Medications Generic Name Dose Route Start Last Admin Trade Name Freq PRN Reason Stop Dose Admin Acetaminophen 650 mg 01/05/25 19:50 Acetaminophen Tab 325 Mg Tab PO Q6HR PRN Fever and/ or Pain Allopurinol 300 mg 01/06/25 09:00 Allopurinol 300 Mg Tab PO DAILY [facility] Apixaban 5 mg 01/05/25 21:00 01/05/25 20:56 Apixaban 5 Mg Tab PO 5 mg BID [facility] Administration Protocol Aspirin 325 mg 01/06/25 09:00 Aspirin 325 Mg Tab PO DAILY [facility] Atorvastatin Calcium 40 mg 01/05/25 21:00 01/05/25 20:56 Atorvastatin 40 Mg Tab PO 40 mg HS DAWNA Administration Carvedilol 25 mg 01/05/25 21:00 01/05/25 22:31 Carvedilol 12.5 Mg Tab PO 25 mg BID-W/MEALS DAWNA Administration Clopidogrel Bisulfate 75 mg 01/06/25 09:00 Clopidogrel 75 Mg Tab PO DAILY DAWNA Dextrose/Water 25 ml 01/06/25 01:39 Dextrose 50% Syringe 50 Ml IVP PER PROTOCOL PRN Hypoglycemia Protocol Dextrose/Water 50 ml 01/06/25 01:39 Dextrose 50% Syringe 50 Ml IVP PER PROTOCOL PRN Hypoglycemia Protocol Duloxetine HCl 60 mg 01/05/25 21:00 01/05/25 20:56 Duloxetine Hcl 60 Mg Capsule.Dr PO 60 mg BID DAWNA Administration Famotidine 20 mg 01/05/25 21:00 01/05/25 20:56 Famotidine 20 Mg/2 Ml Vial IV 20 mg Q12HR DAWNA Administration Furosemide 40 mg 01/06/25 09:00 Furosemide 40 Mg Tab PO DAILY [facility] Gabapentin 1,200 mg 01/05/25 22:00 01/05/25 22:31 Gabapentin 400 Mg Cap PO 1,200 mg TID DAWNA Administration Insulin Human Lispro 0 unit 01/06/25 07:30 01/06/25 06:05 Insulin Lispro (Humalog) 100 Unit/Ml 10 Ml Vl SQ Not Given ACHS [facility] Protocol Nitroglycerin 0.4 mg 01/05/25 13:35 Nitroglycerin Sl Tabs 0.4 Mg Tab SUBLINGUAL Q5M PRN Chest Pain Pantoprazole Sodium 40 mg 01/06/25 07:30 01/06/25 06:22 Pantoprazole 40 Mg Tablet PO 40 mg AC-BRKFST DAWNA Administration Zolpidem Tartrate 10 mg 01/05/25 21:00 01/05/25 20:56 Zolpidem 5 Mg Tab PO 10 mg HS DAWNA Administration Intake and Output 01/05/25 01/06/25 01/06/25 22:59 06:59 14:59 Other: Voiding Method Toilet Toilet # Voids 1 Weight 122.924 kg 01/05/25 11:27 01/05/25 11:27
[2025-01-06 10:31] LABS: Chol/HDL Ratio 2.48 Ratio; LDL Cholesterol,Calculated 61.5 mg/dL (0.0-131.0)
[2025-01-06] MEDS: CLOPIDOGREL 75 MG TAB PO SCH (10:45)
[2025-01-06] MEDS: allopurinoL 300 MG TAB PO SCH (10:45)
[2025-01-06] MEDS: FUROSEMIDE 40 MG TAB PO SCH (10:45)
[2025-01-06] MEDS: ASPIRIN 325 MG TAB PO SCH (11:02)
--- NOTE | 2025-01-06 22:57 | P.DS ---
Providers Date of admission: 01/05/25 13:37 Attending physician: Jaleel Espinoza MD Consults: 01/05/25 13:35 Consult Physician Urgent Consulting Provider: Nico Diaz Consult Reason/Comments: chest pain Do you want consulting provider notified?: Yes Primary care physician: Physician Nonstaff Hospital Course: Diagnoses: Palpitation with history of A-fib, resolved upon discharge Right pleural effusion with looks chronic also there is patchy opacity on the left base. No new respiratory symptoms. Procalcitonin is low, unlikely pneumonia. With no fever or leukocytosis Bilateral pulmonary atelectasis Chronic hypoxic respiratory failure Paroxysmal atrial fibrillation Diabetes Hypertension Hyperlipidemia History of GERD COPD with no obvious acute exacerbation Gout Neuropathy Hospital course: Patient is a pleasant 74 years old male with past medical history of multiple medical problems as below Presents because of feeling the heartbeat of his left chest, and get fast at times and fluctuates, he has history of A-fib so he got concerned and came to the emergency room However when asking specifically he denies chest pain he denies discomfort in his chest or upper abdomen He was evaluated by nurse practitioner physicians assistant and reassurance provided for him. His symptoms resolved, his heart rate controlled he denies any other new complaint He has chronic pleural effusion and he follow-up with his cane flume feeding machine operator Dr. Sales as he told me that he plan to go see him in the near future as planned. Again this is chronic. Also he has oxygen at home at the current dose 3 L/min. Patient denies any other new complaints and he wants to go home since he has been cleared to be discharged by nurse practitioner physicians assistant Problems and management plan were discussed with the patient and he verbalized understanding and acceptance Patient was found stable and can be discharged home in guarded prognosis however he needs follow-up as an outpatient. Patient was instructed to follow up with PCP within one week and patient agrees Patient instructed to follow-up with his nurse practitioner physicians assistant Dr. Diaz in 1 week after discharge and he agrees as well as with his cane flume feeding machine operator as above and he agrees. Also he was instructed to return to emergency room if he develops any symptoms and examples provided for him and he agrees as well. Physical exam Gen: patient is a AAOx3, no distress CVS: S1-S2, RRR, no murmur Lungs: B/L CTA, no wheezing. On oxygen via nasal cannula Abdomen: soft, no distention, no tenderness, positive bowel sounds Extremity: no leg edema or induration Time spent more than 35 minutes Patient Condition at Discharge: Fair Plan - Discharge Summary Discharge Rx Participant: Yes New Discharge Prescriptions: Continue allopurinoL [Zyloprim] 300 mg PO DAILY metFORMIN HCL [Glucophage] 850 mg PO DAILY carvediloL [Coreg] 25 mg PO BID Zolpidem [Ambien] 10 mg PO HS Furosemide [Lasix] 40 mg PO DAILY #30 tab Atorvastatin [Lipitor] 40 mg PO HS #30 tab Pantoprazole [Protonix] 40 mg PO AC-BRKFST #30 tab Acetaminophen Tab [Tylenol] 650 mg PO Q6HR PRN tab PRN Reason: Fever And/ Or Pain glipiZIDE [Glucotrol] 5 mg PO BID Mupirocin Calcium 2% Cream [Bactroban 2% Cream] 1 applic TOPICAL BID Pioglitazone [Actos] 30 mg PO DAILY Losartan [Cozaar] 50 mg PO DAILY Montelukast [Singulair] 10 mg PO DAILY DULoxetine HCL [Cymbalta] 60 mg PO BID Apixaban [Eliquis] 5 mg PO BID #60 tab Clopidogrel [Plavix] 75 mg PO DAILY #30 tab Ergocalciferol [Vitamin D2 (1250 Mcg = 26391 Iu)] 1,250 mcg PO Q7D Fluticasone/Umeclidin/Vilanter [Trelegy Ellipta 200-62.5-25] 1 puff INHALATION RT-DAILY Gabapentin 1,200 mg PO TID Nitroglycerin Sl Tabs [Nitrostat] 0.4 mg SL Q5M PRN PRN Reason: Chest Pain Discharge Medication List DULoxetine HCL [Cymbalta] 60 mg PO BID 09/27/24 [History] Losartan [Cozaar] 50 mg PO DAILY 09/27/24 [History] Montelukast [Singulair] 10 mg PO DAILY 09/27/24 [History] Pioglitazone [Actos] 30 mg PO DAILY 09/27/24 [History] Zolpidem [Ambien] 10 mg PO HS 09/27/24 [History] allopurinoL [Zyloprim] 300 mg PO DAILY 09/27/24 [History] carvediloL [Coreg] 25 mg PO BID 09/27/24 [History] metFORMIN HCL [Glucophage] 850 mg PO DAILY 09/27/24 [History] Acetaminophen Tab [Tylenol] 650 mg PO Q6HR PRN tab 10/01/24 [Rx] Apixaban [Eliquis] 5 mg PO BID #60 tab 10/01/24 [Rx] Atorvastatin [Lipitor] 40 mg PO HS #30 tab 10/01/24 [Rx] Clopidogrel [Plavix] 75 mg PO DAILY #30 tab 10/01/24 [Rx] Furosemide [Lasix] 40 mg PO DAILY #30 tab 10/01/24 [Rx] Pantoprazole [Protonix] 40 mg PO AC-BRKFST #30 tab 10/01/24 [Rx] Ergocalciferol [Vitamin D2 (1250 Mcg = 80820 Iu)] 1,250 mcg PO Q7D 01/05/25 [History] Fluticasone/Umeclidin/Vilanter [Trelegy Ellipta 200-62.5-25] 1 puff INHALATION RT-DAILY 01/05/25 [History] Gabapentin 1,200 mg PO TID 01/05/25 [History] Mupirocin Calcium 2% Cream [Bactroban 2% Cream] 1 applic TOPICAL BID 01/05/25 [History] Nitroglycerin Sl Tabs [Nitrostat] 0.4 mg SL Q5M PRN 01/05/25 [History] glipiZIDE [Glucotrol] 5 mg PO BID 01/05/25 [History] Follow up Appointment(s)/Referral(s): Nico Diaz DO [STAFF PHYSICIAN] - 01/13/25 10:00 am Nonstaff,Physician [Primary Care Provider] - 1-2 days Activity/Diet/Wound Care/Special Instructions: Heart healthy diet activity is restricted till you see your doctor We recommend to follow-up with your cane flume feeding machine operator in 1 to 2 weeks. You have the contact information as seen from the medical team please call to make appointment Discharge Disposition: HOME SELF-CARE
[2025-01-07] MEDS ORDERED: ASPIRIN 81 MG PO SCH (09:00)
== END 2025-01-06 13:02 | disposition home or self-care (01) ==
LOC: EC 11:13 → 6NMEDSUR 13:37
PROVIDERS: ADMIT Internal Medicine; ATTEND Internal Medicine
DX: R07.89 Other chest pain (principal); I48.0 Paroxysmal atrial fibrillation; I11.0 Hypertensive heart disease with heart failure; J96.11 Chronic respiratory failure with hypoxia; I50.22 Chronic systolic (congestive) heart failure; I49.3 Ventricular premature depolarization; I25.10 Atherosclerotic heart disease of native coronary artery without angina pectoris; I25.5 Ischemic cardiomyopathy; J98.11 Atelectasis; E78.5 Hyperlipidemia, unspecified; K21.9 Gastro-esophageal reflux disease without esophagitis; E11.40 Type 2 diabetes mellitus with diabetic neuropathy, unspecified; R19.7 Diarrhea, unspecified; M10.9 Gout, unspecified; J44.9 Chronic obstructive pulmonary disease, unspecified; Z99.81 Dependence on supplemental oxygen; Z79.01 Long term (current) use of anticoagulants; Z79.02 Long term (current) use of antithrombotics/antiplatelets; Z79.84 Long term (current) use of oral hypoglycemic drugs; Z79.82 Long term (current) use of aspirin; Z79.899 Other long term (current) drug therapy; Z79.51 Long term (current) use of inhaled steroids; Z88.0 Allergy status to penicillin; Z87.891 Personal history of nicotine dependence; Z95.5 Presence of coronary angioplasty implant and graft
CPT/HCPCS: 96365; 96366; 96372; 96375; 99285; 36415; 93005 ×2; 83880; 80061; 80053; 83735; 84484; 85025; 85610; 85730; 83036; 84145; 71046; G0378 ×2; J3475; J1308 ×2